=== PATIENT | female | born 1945 | race Caucasian/White ===

== ENCOUNTER 2016-02-28 12:58 | Emergency (ER) | payer OTHER, MEDICARE ==
[~2016-02-28] VITALS: Ht 170.2 cm; Wt 97.5 kg
[~2016-02-28 12:58] MED LIST: ALBU1AER9 INH; ASPI81TA28 PO; ATV5 PO; B-COTAB18 PO; BIOF500T PO; CHOL100027 PO; CLC100X PO; ESTR1CRE VA; FERR1TAB62 PO; FLUT27.5 NAE; GFNSR600 PO; GLUCTAB7 PO; HYDR12.56 PO; LOSA50TA54 PO; MULT-506 PO; NXM/40 PO; POTA10CA28 PO; TOPI50TA16 PO; VENL-271 PO; VITAMIN B PO
[2016-02-28 13:01] VITALS: BP 197/78; PULSE 82; O2SAT 99; Ht 170.2 cm; Wt 97.5 kg
--- NOTE | 2016-02-28 14:10 | DIAGNOSTIC IMAGING REPORT ---
LEFT FIFTH FINGER 3 VIEWS CLINICAL HISTORY: Fall with fifth finger pain and injury. FINDINGS: 3 views of the left fifth finger are obtained. No prior studies are available for comparison at the time of dictation. The skeletal structures are osteopenic. No fracture is identified. There is osteoarthritic change identified involving the interphalangeal joints. 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 The fifth metacarpophalangeal joint appears preserved. Soft tissue edema is noted in the fifth digit. IMPRESSION: 1. Soft tissue edema with no acute fracture identified in the left fifth finger. 2. Arthritic change as above. Electronically signed by: Jaime Jiménez M.D. 02/28/2016 2:08 PM
--- NOTE | 2016-02-28 14:12 | DIAGNOSTIC IMAGING REPORT ---
RIGHT KNEE 3 VIEWS CLINICAL HISTORY: Fall with right knee pain. FINDINGS: AP, crosstable lateral, and sunrise views of the right knee are obtained. No prior studies are available for comparison at the time of dictation. The skeletal structures are osteopenic. No fracture is seen. There is moderate degenerative narrowing at the patellofemoral articulation. Only mild narrowing is seen in the medial and lateral compartments. A calcified fabella is incidentally noted. There is a large superior patellar enthesophyte. Tiny marginal osteophytes are noted. A small joint effusion is suspected. Mild soft tissue edema is seen around the knee. IMPRESSION: 1. Mild soft tissue edema and small joint effusion. No fracture is identified. 2. Osteopenia and mild arthritic change as above. Electronically signed by: Jaime Jiménez M.D. 02/28/2016 2:10 PM
--- NOTE | 2016-02-28 14:27 | EMERGENCY ROOM VISIT NOTE ---
ED Visit Note First contact with patient: 13:07 CHIEF COMPLAINT: Left fifth finger and right knee injury yesterday HISTORY OF PRESENT ILLNESS: Patient is a 70-year-old white female who presents emergency department for evaluation of pain, swelling and bruising in the left fifth finger and the right knee. She tripped on an uneven curb while walking last evening, landing on the flexed right knee, and apparently tried to catch herself on her left hand. She noted pain, swelling and a slight abrasion over the anterior knee, as well as bruising and discomfort in the left fifth finger. She applied ice and took Tylenol before she went to bed last day. She is able to walk and bear weight on the knee but it is painful and swollen. There was no audible snap or crack at the time of the fall. REVIEW OF SYSTEMS: Review of systems as per HPI. All other systems reviewed were negative. At least 6 systems reviewed. PMH: Electronic medical records are reviewed and summarized as above/below. See Problem List. SOCIAL HISTORY: Patient lives at home with her . Nonsmoker.. PHYSICAL EXAM: Vital Signs: Reviewed Nurse's notes. CONSTITUTIONAL: Patient is a pleasant, well-appearing 70-year-old white female who is awake and alert and in no acute distress. She stated at the bedside. MUSCULOSKELETAL: There is no deformity of the left fifth finger, which is circumferentially swollen, and ecchymotic, particularly involving the proximal and middle phalanx. Range of motion is full, limited only by the soft tissue swelling. She does not have pain extending into the MCP joint. Examination of the right knee shows a superficial abrasion anteriorly. The knee is slightly swollen and ecchymotic, particularly in the prepatellar area. No significant knee joint effusion is palpable. She is tender over the patella, no obvious defect or fracture crepitus is noted. No pain over the medial or the lateral joint line, range of motion is full. No gross ligament instability is appreciated. She is neurovascularly intact. EMERGENCY DEPARTMENT COURSE: X-rays of the right knee and left fifth finger were obtained and noted arthritic changes without evidence for acute fracture or dislocation. She was placed in a metal finger splint. Supportive care measures were discussed. Differential diagnosis included fracture, dislocation , sprain, contusion, among others. Problem List Medical Problems: (1) Hypertension Nos Status: Chronic Surgical Problems: (1) Appendicitis Status: Resolved (2) Bilateral tubal ligation Status: Resolved Current/Historical Medications Scheduled Aspirin (Aspirin Ec), 81 MG PO DAILY B-Complex Vitamins (Vitamin B Complex), 1 TAB PO DAILY Bioflavonoid Products (Suly-C), 1 TAB PO DAILY Cholecalciferol (Vitamin D 1000 Unit), 1,000 INTER.UNIT PO DAILY Esomeprazole Magnesium (Nexium), 40 MG PO QAM Estrogens, Conjugated Vaginal (Premarin), 0.25 APPL VA 3XWK Bkrfskronro-Pohtiysxqyh-Rgi C- (Glucosamine Chondroitin), 1 TAB PO DAILY Hydrochlorothiazide (Hctz), 12.5 MG PO DAILY Lorazepam (Ativan *), 0.5 MG PO DAILY PRN Losartan Potassium (Cozaar), 50 MG PO DAILY Multivitamin (Multivitamin), 1 TAB PO DAILY Topiramate (Topamax), 50 MG PO BID Venlafaxine Hcl (Venlafaxine Hcl Er), 37.5 MG PO DAILY [Vitamin B1,B6,B12], 1 DOSE PO DAILY Scheduled PRN Albuterol (Proair Hfa), 2 PUFFS INH Q4H PRN for SOB/Wheezing Fluticasone Furoate (Veramyst), 2 SPRAYS MANJIT BID PRN Guaifenesin Ext Rel (Mucinex Ext Rel *), 1,200 MG PO BID PRN Allergies Coded Allergies: Ibuprofen (Verified Allergy, Unknown, HIVES AND SWELLING, 02/28/16) Vital Signs Date Time Temp Pulse Resp B/P Pulse Ox O2 Delivery O2 Flow Rate FiO2 02/28/16 13:01 82 16 197/78 99 Departure Information Impression Primary Impression: Knee contusion Additional Impression: Finger sprain Referrals Johnnie Gates D.O. (PCP) Patient Instructions A Signature Page, My [facility] Additional Instructions Acetaminophen(Tylenol) may be used for fever or pain. Use 1000mg every six hours as needed. Avoid using more than 3000mg in a 24 hour period. This medication can be taken if you need to drive, work, or perform activities which may be dangerous when taking narcotic pain medication. Ice compresses for 20 minutes at a time four times daily for 2-3 days. Rest and elevate your injury. Continue current medications. Return to the ER immediately for any numbness, tingling, severe pain, extreme swelling in the extremity or as needed. Follow-up with orthopedic surgery or family doctor if her symptoms are not improving in the next 5-7 days.
== END 2016-02-28 14:46 | disposition home or self-care (01) ==
LOC: C.EDB 12:59 → C.EDD 14:46
DX: S80.01XA Contusion of right knee, initial encounter (principal); S63.617A Unspecified sprain of left little finger, initial encounter; W10.1XXA Fall (on)(from) sidewalk curb, initial encounter; Y93.01 Activity, walking, marching and hiking; I10 Essential (primary) hypertension; Z79.82 Long term (current) use of aspirin; Z79.890 Hormone replacement therapy; Z79.899 Other long term (current) drug therapy; Z88.6 Allergy status to analgesic agent

== ENCOUNTER → 2016-07-21 | Outpatient (CLI) | payer OTHER, MEDICARE ==
[~2016-07-21] MED LIST changes: -CLC100X PO; -FERR1TAB62 PO; -POTA10CA28 PO
--- NOTE | 2016-07-21 08:44 | DIAGNOSTIC IMAGING REPORT ---
GI SERIES W/O KUB CLINICAL HISTORY: Follow-up hernia. COMPARISON STUDY: Upper GI series 11/04/2014. FLUOROSCOPY TIME: 2.4 minutes. FINDINGS: 21 images submitted. The patient swallowed barium without difficulty. The esophagus is normal in course and caliber. There is a small hiatal hernia, unchanged. Irregular appearance of the gastric fundus within the hernia likely corresponds the patient's reported history of a fundoplication. This is also unchanged. No gastric ulcerations. The duodenal bulb and duodenal C sweep are within normal limits. Cervical spinal fusion hardware. Cholecystectomy. No gastroesophageal reflux. IMPRESSION: No change from the prior study. Small hiatus hernia persists. Electronically signed by: Curtis Shabazz M.D. 07/21/2016 8:42 AM Dictated Date/Time: 07/21/2016 8:40 AM
== END | disposition home or self-care (01) ==
LOC: C.RAD 07:57
PROVIDERS: ATTEND Surgery
DX: Z98.890 Other specified postprocedural states (principal); Z87.19 Personal history of other diseases of the digestive system

== ENCOUNTER → 2016-09-14 | Outpatient (CLI) | payer OTHER, MEDICARE ==
[~2016-09-14] MED LIST changes: +OPTIRAY 320 IV PRN
--- NOTE | 2016-09-14 12:03 | DIAGNOSTIC IMAGING REPORT ---
ABD/PELVIS IV AND ORAL CONT HISTORY: 71 years Female with acute diffuse lower abdominal pain with diarrhea. Concern for acute diverticulitis. COMPARISON: CT abdomen and pelvis 07/20/2012 TECHNIQUE: Multiple axial CT images of the abdomen and pelvis were obtained following the intravenous administration of 93 mL Optiray 320. Oral contrast also used. FINDINGS: There are a few scattered groundglass nodules at the lung bases measuring up to 7 mm within the lateral basal segment left lower lobe on image 9 and measuring up to 4 mm within the lateral segment right middle lobe on image 6. These foci were not imaged on comparison study. There is no pneumoperitoneum. Inferior cardiac chambers are unremarkable. Coronary arterial calcifications are seen. Prior cholecystectomy. 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 There is suggested fatty infiltration of the liver. The spleen, pancreas and adrenal glands appear normal. Several nonobstructing renal calculi are seen on the left measuring up to 5 mm. Suggested cyst of the posterior interpolar right kidney measures 8 mm. There is no hydronephrosis. Bilateral ureters appear normal. There is mild circumferential wall thickening of the urinary bladder with minimal surrounding inflammatory stranding. Uterus appears age appropriate. Surgical clips are again seen within the pelvis. Cystic lesion within the region of the right adnexum measures 5.5 x 3.6 cm, previously 3.7 x 3.3 cm with similar appearing lesion seen on the left, 2.7 x 2.2 cm, previously 1.5 x 1.5 cm. There is moderate atherosclerotic plaquing of the abdominal aorta. No bulky retroperitoneal adenopathy. There is a large hiatal hernia with approximately 50% of the stomach located within the thorax. No bowel obstruction. Scattered noninflamed colonic diverticula are noted throughout the sigmoid colon. Prior appendectomy. There are no significant inflammatory changes of the bowel. Soft tissues are unremarkable. The bones are moderately demineralized. There is 8 mm anterolisthesis L5 on S1 secondary to remote appearing bilateral pars defects. IMPRESSION: 1. Circumferential wall thickening of the urinary bladder with mild surrounding inflammatory stranding suggests cystitis. Correlate with urinalysis. 2. Colonic diverticulosis without diverticulitis. 3. Cystic lesions of the bilateral adnexa, right greater than left have mildly increased in size from comparison study 07/20/2012. These findings could be correlated with pelvic ultrasound. 4. Prior cholecystectomy. Moderate amount of intrahepatic pneumobilia is likely secondary to incompetent sphincter of Oddi. 5. Large hiatal hernia with partial intrathoracic stomach. 6. Nonobstructing left renal calculi. The above report was generated using voice recognition software. It may contain grammatical, syntax or spelling errors. Electronically signed by: Desean Hernandez M.D. 09/14/2016 12:02 PM Dictated Date/Time: 09/14/2016 11:48 AM
== END | disposition home or self-care (01) ==
LOC: C.CTS 09:38
PROVIDERS: ATTEND Nurse Practitioner
DX: K57.30 Diverticulosis of large intestine without perforation or abscess without bleeding (principal); R19.7 Diarrhea, unspecified; R10.30 Lower abdominal pain, unspecified; K44.9 Diaphragmatic hernia without obstruction or gangrene

== ENCOUNTER 2017-06-20 14:11 | Emergency (ER) | payer OTHER, MEDICARE ==
[~2017-06-20] VITALS: Ht 170.2 cm; Wt 90.1 kg
[~2017-06-20 14:11] MED LIST changes: -OPTIRAY 320 IV PRN
[2017-06-20 14:16] VITALS: Ht 170.2 cm; Wt 90.1 kg
[2017-06-20 15:00] VITALS: O2SAT 97
[2017-06-20] MEDS ORDERED: FENTANYL CITRATE INJ 50 MCG/1 ML 2 ML VIAL IV ONE (15:00)
[2017-06-20 15:01] LABS: BASO % 0.3 %; BASO ABS # 0.02 K/uL (0-0.2); EOS % 1.5 %; EOS ABS # 0.09 K/uL (0-0.5); HEMATOCRIT 38.8 % (37-47); HEMOGLOBIN 12.9 g/dL (12.0-16.0); IG# 0.01 K/uL (0.00-0.02); LYMPH % 15.4 %; LYMPH ABS # 0.95 K/uL (1.2-3.4); MEAN CELL VOLUME 83.3 fL (80-100); MEAN CORPUSCULAR HEMOGLOBIN 27.7 pg (25-34); MEAN CORPUSCULAR HGB CONC 33.2 g/dl (32-36); MEAN PLATELET VOLUME 10.4 fL (7.4-10.4); MONO % 8.3 %; MONO ABS # 0.51 K/uL (0.11-0.59); NEUT % 74.3 %; NEUT ABS # 4.57 K/uL (1.4-6.5); PLATELET COUNT 307 K/uL (130-400); RED CELL DISTRIBUTION WIDTH CV 16.1 % (11.5-14.5); RED CELL DISTRIBUTION WIDTH SD 48.5 fL (36.4-46.3); WHITE BLOOD COUNT 6.15 K/uL (4.8-10.8)
[2017-06-20 15:10] LABS: PTT PATIENT 26.8 SECONDS (21.0-31.0)
--- NOTE | 2017-06-20 15:17 | DIAGNOSTIC IMAGING REPORT ---
CHEST ONE VIEW PORTABLE CLINICAL HISTORY: Left-sided chest pain. COMPARISON STUDY: Chest radiograph July 20, 2012. FINDINGS: Patient is rotated. Spinal fusion is incidentally noted. There is no pneumothorax or pleural effusion. There is no consolidation to suggest pneumonia. Pulmonary vascularity is normal. Cardiomediastinal silhouette is stable. IMPRESSION: No acute cardiopulmonary findings. Electronically signed by: Ángel Hair M.D. 06/20/2017 3:16 PM Dictated Date/Time: 06/20/2017 3:15 PM
[2017-06-20 15:25] LABS: ALKALINE PHOSPHATASE 81 U/L (45-117); ALT/SGPT 25 U/L (12-78); AST/SGOT 17 U/L (15-37); BLOOD UREA NITROGEN 16 mg/dl (7-18); CALCIUM 9.6 mg/dl (8.5-10.1); CARBON DIOXIDE 26 mmol/L (21-32); CREATININE 1.22 mg/dl (0.60-1.20); GLUCOSE 90 mg/dl (70-99); LIPASE 123 U/L (73-393); POTASSIUM 3.3 mmol/L (3.5-5.1); SODIUM 137 mmol/L (136-145); TOTAL PROTEIN 8.1 gm/dl (6.4-8.2)
--- NOTE | 2017-06-20 15:48 | EMERGENCY ROOM VISIT NOTE ---
History Report prepared by Sanket: Santiago Langford Under the Supervision of: Dr. José Miguel Stewart M.D. First contact with patient: 14:37 Chief Complaint: CHEST PAIN Stated Complaint: PAIN ON LEFT CHEST Nursing Triage Summary: Pain under left breast that started last night. "I sat in a chair for 15 hrs yesterday waiting for my grandson to be born. I'm worried about a blood clot. It's worse if I stretch or move." Denies sob, dizziness or lightheadedness. History of Present Illness The patient is a 72 year old white female with a past medical history of HTN and TIA who presents to the ED with a cc of constant left lower chest pain beginning last night. Pain is worsened with moving her torso and arms. Patient notes that she sat in a chair for 15 hours yesterday waiting for her great grandson to be born. Negative leg swelling, SOB, dizziness, or breast tenderness /swelling/discharge. No recent straining, or injuries. She is on baby aspirin. Patient had recent cataract surgery. No recent hospitalization, fractures, history of cancer, or prolonged travel. No history of shingles. Patient is nervous because she is supposed to fly to [place] next week. Source of History: patient Onset: Last night Position: chest (left lower) Timing: constant Modifying Factors (Worsening): movement (torso and arms) Associated Symptoms: No SOB Note: Negative: leg swelling, dizziness, or breast tenderness/swelling/discharge Review of Systems See HPI for pertinent positives and negatives. A total of ten systems were reviewed and were otherwise negative. Past Medical & Surgical Medical Problems: (1) Hypertension Nos Surgical Problems: (1) Appendicitis (2) Bilateral tubal ligation Family History No pertinent family history stated. Social History Smoking Status: Former Smoker Drug Use: none Marital Status: Housing Status: lives with family Current/Historical Medications Scheduled Aspirin (Aspirin Ec), 81 MG PO DAILY B-Complex Vitamins (Vitamin B Complex), 1 TAB PO DAILY Esomeprazole Magnesium (Nexium), 40 MG PO QAM Estrogens, Conjugated (Premarin), 1 APPLN PV 3XWK Qvlbmebwrdg-Pdvksdknjja-Upj C- (Glucosamine Chondroitin), 1 TAB PO DAILY Hydrochlorothiazide (Hctz), 12.5 MG PO DAILY Losartan Potassium (Cozaar), 50 MG PO DAILY Multivitamin (Multivitamin), 1 TAB PO DAILY Topiramate (Topamax), 50 MG PO BID Venlafaxine Hcl (Venlafaxine Hcl Er), 37.5 MG PO DAILY Scheduled PRN Albuterol Hfa (Ventolin Hfa), 2 PUFFS INH Q4 PRN for SOB/Wheezing Guaifenesin Ext Rel (Mucinex Ext Rel), 1,200 MG PO Q12 PRN for CONGESTION Lorazepam (Ativan), 0.5 MG PO DAILY PRN for Anxiety [Veramyst], 2 SPRAYS MANJIT BID PRN for Nasal Congestion Allergies Coded Allergies: Ibuprofen (Verified Allergy, Intermediate, HIVES AND SWELLING, 09/14/16) Physical Exam Vital Signs Date Time Temp Pulse Resp B/P (MAP) Pulse Ox O2 Delivery O2 Flow Rate FiO2 06/20/17 15:13 63 06/20/17 15:00 97 Room Air 06/20/17 14:16 36.4 70 18 163/79 97 Physical Exam GENERAL: Awake, alert, well-appearing, NAD HENT: Normocephalic, atraumatic. EYES: Normal conjunctiva. Sclera non-icteric. PERRL. No anisocoria. NECK: Supple. No nuchal rigidity. FROM. RESPIRATORY: CTAB, no rhonchi, wheezing, crackles CARDIAC: RRR, no MRG ABDOMEN: Soft, NTND, BS+ MSK: No LE edema. Reproducible left lower chest wall pain. No overlying skin changes. No vesicles. Pain with LUE movement. NEURO: GCS 15, CN 2-12 intact, moves all 4s on command SKIN: No rash or jaundice noted. Medical Decision & Procedures ER Provider Diagnostic Interpretation: Radiology results as stated below per my review and radiologist interpretation: CHEST ONE VIEW PORTABLE FINDINGS: Patient is rotated. Spinal fusion is incidentally noted. There is no pneumothorax or pleural effusion. There is no consolidation to suggest pneumonia. Pulmonary vascularity is normal. Cardiomediastinal silhouette is stable. IMPRESSION: No acute cardiopulmonary findings. Electronically signed by: Ángel Hair M.D. 06/20/2017 3:16 PM Laboratory Results 06/20/17 14:50 Red Blood Count 4.66, Mean Corpuscular Volume 83.3, Mean Corpuscular Hemoglobin 27.7, Mean Corpuscular Hemoglobin Concent 33.2, Mean Platelet Volume 10.4, Neutrophils (%) (Auto) 74.3, Lymphocytes (%) (Auto) 15.4, Monocytes (%) (Auto) 8.3, Eosinophils (%) (Auto) 1.5, Basophils (%) (Auto) 0.3, Neutrophils # (Auto) 4.57, Lymphocytes # (Auto) 0.95, Monocytes # (Auto) 0.51, Eosinophils # (Auto) 0.09, Basophils # (Auto) 0.02 06/20/17 14:50 Test 06/20/17 14:50 White Blood Count 6.15 K/uL (4.8-10.8) Red Blood Count 4.66 M/uL (4.2-5.4) Hemoglobin 12.9 g/dL (12.0-16.0) Hematocrit 38.8 % (37-47) Mean Corpuscular Volume 83.3 fL (80-100) Mean Corpuscular Hemoglobin 27.7 pg (25-34) Mean Corpuscular Hemoglobin Concent 33.2 g/dl (32-36) Platelet Count 307 K/uL (130-400) Mean Platelet Volume 10.4 fL (7.4-10.4) Neutrophils (%) (Auto) 74.3 % Lymphocytes (%) (Auto) 15.4 % Monocytes (%) (Auto) 8.3 % Eosinophils (%) (Auto) 1.5 % Basophils (%) (Auto) 0.3 % Neutrophils # (Auto) 4.57 K/uL (1.4-6.5) Lymphocytes # (Auto) 0.95 K/uL (1.2-3.4) Monocytes # (Auto) 0.51 K/uL (0.11-0.59) Eosinophils # (Auto) 0.09 K/uL (0-0.5) Basophils # (Auto) 0.02 K/uL (0-0.2) RDW Standard Deviation 48.5 fL (36.4-46.3) RDW Coefficient of Variation 16.1 % (11.5-14.5) Immature Granulocyte % (Auto) 0.2 % Immature Granulocyte # (Auto) 0.01 K/uL (0.00-0.02) Prothrombin Time 11.0 SECONDS (9.0-12.0) Prothromb Time International Ratio 1.0 (0.9-1.1) Activated Partial Thromboplast Time 26.8 SECONDS (21.0-31.0) Partial Thromboplastin Ratio 1.0 Anion Gap 6.0 mmol/L (3-11) Est Creatinine Clear Calc Drug Dose 49.5 ml/min Estimated GFR () 52.0 Estimated GFR (Non- 44.8 BUN/Creatinine Ratio 13.0 (10-20) Calcium Level 9.6 mg/dl (8.5-10.1) Total Bilirubin 0.4 mg/dl (0.2-1) Direct Bilirubin 0.1 mg/dl (0-0.2) Aspartate Amino Transf (AST/SGOT) 17 U/L (15-37) Alanine Aminotransferase (ALT/SGPT) 25 U/L (12-78) Alkaline Phosphatase 81 U/L (45-117) Troponin I < 0.015 ng/ml (0-0.045) Pro-B-Type Natriuretic Peptide 164 pg/ml (0-900) Total Protein 8.1 gm/dl (6.4-8.2) Albumin 4.0 gm/dl (3.4-5.0) Lipase 123 U/L (73-393) Laboratory results reviewed by me Medications Administered Medications (Trade) Dose Ordered Sig/Krishan Route Start Time Stop Time Status Last Admin Dose Admin Fentanyl Citrate (Fentanyl Inj) 50 mcg NOW ONCE IV 06/20/17 15:00 06/20/17 15:01 DC 06/20/17 15:27 50 MCG ECG Per My Interpretation Indication: chest pain Rate (beats per minute): 64 Rhythm: normal sinus Findings: other (Normal intervals. Normal axis. No STS changes or TWI. No evidence of right heart strain. ) ED Course 1443: The patient was evaluated in room B3B. A complete history and physical exam was performed. 1532: I reevaluated the patient. Discussed results and discharge instructions: she verbalized understanding and agreement. The patient is ready for discharge. Medical Decision Nursing notes reviewed. Ancillary studies and prior records reviewed. The patient is a 72 year old white female with a past medical history of HTN and TIA who presents to the ED with a cc of constant left lower chest pain beginning last night. Differential diagnosis: Etiologies such as cardiac ischemia, aortic dissection, pulmonary embolism, pneumonia, pneumothorax, musculoskeletal, infections, pericarditis, myocarditis , esophageal rupture, gastrointestinal, as well as others were entertained. Patient was seen and evaluated the bedside. Patient was complaining of some left-sided lower costal margin pain. Patient denies any recent strains sprains , heavy lifting, or trauma. Patient denies any prior history of heart disease. Patient denies any lung disease. Patient notes some reproducible discomfort as well as some pain with raising her left upper extremity. Patient denies any exertional symptoms, recent car or plane travel that has been prolonged, hospitalizations, thrombophilias, history of DVT or PE. Patient did have blood work completed, EKG, troponin, BNP, chest x-ray. Patient is EKG is nonischemic with a undetectable troponin. HEART score < 3. Less likely ACS. No evidence of right heart strain on EKG. Patient would PERC in, with the patient's well score is 0. Less likely PE. I believe is most likely a musculoskeletal related discomfort or even some spasm. Patient was given some recommendations for voum-iaq-mfingna type treatments as well as home remedies. Patient was told to continue take Tylenol was given a small prescription of tramadol. Patient was told it for her upcoming trip she should do calf exercises, walk around the cabin, and consider compression stockings. Patient was deemed suitable for outpatient follow-up treatment at this time. Patient was given strict follow-up, discharge, and return precautions. All questions were answered. Patient was deemed suitable for outpatient follow-up at this time. Patient agreed with the plan of care and was safely discharged home. Medication Reconcilliation Current Medication List: was personally reviewed by me Blood Pressure Screening Patient's blood pressure: Elevated blood pressure Blood pressure disposition: Referred to PCP Impression Primary Impression: Chest wall pain Additional Impression: Hypokalemia Scribe Attestation The scribe's documentation has been prepared under my direction and personally reviewed by me in its entirety. I confirm that the note above accurately reflects all work, treatment, procedures, and medical decision making performed by me. Departure Information Dispostion Home / Self-Care Prescriptions Tramadol Hcl (ULTRAM) 50 Mg Tab 25 MG PO Q8H for Pain, #12 TAB PRN PAIN Prov: José Miguel Stewart M.D. 06/20/17 Referrals Johnnie Gates D.O. (PCP) Patient Instructions ED Chest Pain Costochondritis, ED TAMMY, My [facility] Additional Instructions Please return to the emergency department if you have worsening or recurrent symptoms not amenable to at-home treatment. Please call for a follow-up appointment with her primary care physician. Please take your medications as prescribed. If you have other concerns and/or complaints please feel free to also call your primary care physician's office or return the ED for further evaluation, management, and treatment. You may take tylenol 650 mg every 6 hours as needed for pain/fever unless told by your physician to not take it or have liver problems. If you still have discomfort you may try using the tramadol. Please be mindful that the medication can make you sleepy or sedated. Take your medications as prescribed. You have been examined and treated today on an emergency basis only. This is not a substitute for, or an effort to provide, complete comprehensive medical care. It is impossible to recognize and treat all injuries or illnesses in a single emergency department visit. It is therefore important that you follow up closely with [facility], your PCP, and/or your specialist(s). Call as soon as possible for an appointment. Thank you for your time and consideration. I look forward to speaking with you again soon. Please don't hesitate to call us if you have any questions. Problem Qualifiers
[2017-06-20] MEDS ORDERED: VNTHFA/IN INH (15:51)
[2017-06-20] MEDS ORDERED: LORA-741 PO (15:51)
[2017-06-20] MEDS ORDERED: GUAI1TAB55 PO (15:51)
[2017-06-20] MEDS ORDERED: PRMVC PV (15:56)
[2017-06-20] MEDS ORDERED: VERAMYST NAE (15:56)
[2017-06-20] MEDS ORDERED: TRAM-453 PO (16:03)
[2017-06-20 16:27] VITALS: BP 137/83; PULSE 65; TEMP 36.4; O2SAT 94
== END 2017-06-20 16:29 | disposition home or self-care (01) ==
LOC: C.EDB 14:12
DX: R07.89 Other chest pain (principal); E87.6 Hypokalemia; I10 Essential (primary) hypertension; Z86.73 Personal history of transient ischemic attack (TIA), and cerebral infarction without residual deficits; Z79.82 Long term (current) use of aspirin; Z87.891 Personal history of nicotine dependence; Z79.899 Other long term (current) drug therapy; Z88.6 Allergy status to analgesic agent

== ENCOUNTER → 2017-07-05 | Outpatient (CLI) | payer OTHER, MEDICARE ==
[~2017-07-05] MED LIST changes: -ALBU1AER9 INH; -ATV5 PO; -BIOF500T PO; -CHOL100027 PO; -ESTR1CRE VA; -FLUT27.5 NAE; -GFNSR600 PO; +GUAI1TAB55 PO; +LORA-741 PO; +OPTIRAY 320 IV PRN; +PRMVC PV; +VERAMYST NAE; -VITAMIN B PO; +VNTHFA/IN INH
--- NOTE | 2017-07-05 16:24 | DIAGNOSTIC IMAGING REPORT ---
(CHEST FOR PE) ANGIO WITH CLINICAL HISTORY: 72 years-old Female presenting with ^LEFT SIDED CHEST PAIN ^LT SIDED CHEST PAIN. TECHNIQUE: Multidetector CT angiography of the chest was performed after administration of intravenous contrast. 3-D volumetric and/or maximum intensity projection (MIP) images were subsequently reconstructed for review. IV contrast: 95 mL of Optiray 320. A dose lowering technique was used consistent with the principles of ALARA (as low as reasonably achievable). COMPARISON: Chest x-ray from 06/20/2017. CT DOSE (mGy.cm): The estimated cumulative dose is 296.19 mGy.cm. FINDINGS: Tube Wrapper topogram: Cholecystectomy clips noted. Pulmonary vasculature: The study is adequate for assessment of the pulmonary vascular tree. No filling defect within the pulmonary arteries to suggest embolus. Main pulmonary artery is not enlarged. No flattening of the interventricular septum. No intracardiac filling defect. No reflux of contrast into the hepatic veins. Remaining chest: On soft tissue windows, normal thyroid and thoracic inlet. No axillary, supraclavicular, hilar, or mediastinal lymphadenopathy. Atherosclerosis of the aorta. Normal heart size. Coronary artery calcification. No pericardial or pleural effusion. Small hiatal hernia. Pneumobilia. Left nephrolithiasis. On lung windows, minimal dependent changes likely atelectasis. Added density at the lung bases. Mosaic attenuation suggest small airways disease. Minimal paraseptal emphysema at the apices. No other focal nodule or infiltrate. Mild bronchial wall thickening. On bone windows, degenerative changes of the spine. Partially visualized anterior cervical fusion hardware. IMPRESSION: 1. No evidence of pulmonary embolus. 2. Findings suggest small airways disease with bronchitis/bronchiolitis. No focal infiltrate to suggest pneumonia. 3. Small hiatal hernia. 4. Left nephrolithiasis. 5. Pneumobilia. Correlate with surgical history. Electronically signed by: Abebe Tang M.D. 07/05/2017 4:23 PM Dictated Date/Time: 07/05/2017 4:15 PM
== END | disposition home or self-care (01) ==
LOC: C.CTS 15:36
PROVIDERS: ATTEND Nurse Practitioner
DX: R07.9 Chest pain, unspecified (principal); K44.9 Diaphragmatic hernia without obstruction or gangrene; N20.0 Calculus of kidney; K83.8 Other specified diseases of biliary tract

== ENCOUNTER 2020-09-28 12:57 | Inpatient (IN) ==
[2020-09-28 14:28] LABS: Basophils # (auto) 0.01 K/uL (0-0.2); Basophils % (auto) 0.1 %; Eosinophils # (auto) 0.02 K/uL (0-0.5); Eosinophils % (auto) 0.2 %; Hematocrit (blood only) 36.3 % (37-47); Hemoglobin 12.3 g/dL (12.0-16.0); Immature Granulocytes # (auto) 0.08 K/uL (0.00-0.02); Immature Granulocytes % (auto) 0.8 %; Lymphocytes # (auto) 0.18 K/uL (1.2-3.4); Lymphocytes % (auto) 1.7 %; Mean Corpuscular Hemoglobin 30.4 pg (25-34); Mean Corpuscular Hgb Conc 33.9 g/dL (32-36); Mean Corpuscular Volume 89.6 fL (80-100); Mean Platelet Volume 11.5 fL (7.4-10.4); Monocytes # (auto) 0.55 K/uL (0.11-0.59); Monocytes % (auto) 5.2 %; Neutrophils # (auto) 9.67 K/uL (1.4-6.5); Platelet Count 279 K/uL (130-400); RDW Coefficient of Variation 14.2 % (11.5-14.5); RDW Standard Deviation 46.6 fL (36.4-46.3); Red Blood Count 4.05 M/uL (4.2-5.4); White Blood Count 10.51 K/uL (4.8-10.8)
[2020-09-28 14:57] LABS: Alanine Aminotransferase 312 U/L (12-78); Albumin Globulin Ratio 0.7 (0.9-2); Albumin Level 3.1 gm/dl (3.4-5.0); Alkaline Phosphatase 306 U/L (45-117); Aspartate Aminotransferase 149 U/L (15-37); BUN Creatinine Ratio 22.9 (10-20); Bilirubin,Total 3.6 mg/dl (0.2-1); Blood Urea Nitrogen 39 mg/dl (7-18); Carbon Dioxide 25 mmol/L (21-32); Chloride 100 mmol/L (98-107); Est GFR (African American) 33.6 ml/min; Globulin 4.7 gm/dl (2.5-4.0); Glucose 294 mg/dl (70-99); Lipase 1147 U/L (73-393); Potassium 2.9 mmol/L (3.5-5.1); Sodium 135 mmol/L (136-145); Total Protein 7.8 gm/dl (6.4-8.2)
[2020-09-28] MEDS ORDERED: ONDANSETRON INJ 2 MG/ML 2 ML VIAL IV STA (16:01)
[2020-09-28] MEDS ORDERED: SODIUM CHLORIDE 0.9% 1000ML 2,000 ML IV ONE (16:01)
--- NOTE | 2020-09-28 16:04 | Emergency Department Note ---
Impression & Plan Choledocholithiasis, Acute pancreatitis ED Provider Note NAME: CHRIS WORLEY AGE: 75 SEX: F : 1945 ARRIVES VIA: Walk-In INFORMANT: Patient ED PROVIDER(S): Dallas Sánchez DO CHIEF COMPLAINT: abdominal pain HPI: Patient is a 75-year-old female who presents the ER for abdominal pain which has been present for the past 2 days associated with nausea and vomiting. She denies any diarrhea. She does have a headache. Pain is a 5 out of 10 located in the epigastric region. History of cholecystectomy about 5 years ago. Denies any dysuria urgency or frequency. Pain is constant. No other exacerbating or remitting factors. She has not vomited in about 8 hours. ROS: See above HPI for pertinent positives & negatives. A total of 10 systems reviewed and were otherwise negative. PAST MEDICAL HISTORY:See Below PAST SURGICAL HISTORY:See Below FAMILY HISTORY:See Below SOCIAL HISTORY:See Below HOME MEDICATIONS:See Below ALLERGIES:See Below VITALS:See Below PHYSICAL EXAMINATION: GENERAL: Sitting up in bed, alert, well appearing, well nourished, no distress, non-toxic EYE EXAM: normal conjunctiva. OROPHARYNX: no exudate, no erythema, lips, buccal mucosa, and tongue normal and mucous membranes are moist NECK: supple, no nuchal rigidity, no adenopathy, non-tender LUNGS: Clear to auscultation. Normal chest wall mechanics HEART: no murmurs, S1 normal and S2 normal ABDOMEN: abdomen soft, non-tender, normo-active bowel sounds, no masses, no rebound or guarding. UPPER EXTREMITIES: upper extremities are grossly normal. LOWER EXTREMITIES: No pitting edema. NEURO EXAM: Normal sensorium, cranial nerves II-XII grossly intact, normal speech, no gross weakness of arms, no gross weakness of legs. MEDICAL DECISION MAKING: Patient is a 75-year-old female who presents ER for abdominal pain nausea vomiting which is been present for the past 2 days history of cholecystectomy. IV was established blood work was obtained. Labs show no significant leukocytosis or anemia. BMP with mild hypokalemia at 2.9. Creatinine at 1.7. There is a transaminitis and elevated bili at 3.6. Lipase was elevated at 1200. CT abdomen pelvis shows choledocholithiasis and I favor that this is also gallstone pancreatitis. Discussed with Dr. Lara from GI and they will evaluate in the morning. Patient was given IV Zosyn and fluids. Discussed with the hospitalist Dr. Fowler and Dr. Stone patient was admitted for further work- up. Triage Nursing notes reviewed. Limited review of prior medical records performed Vital Signs: reviewed and remarkable for no significant abnormalities Differential diagnosis: Differential diagnoses includes but is not limited to gastritis, peptic ulcer disease, GERD, gallbladder disease, pancreatitis, small bowel obstruction, acute coronary syndrome, pericarditis, ischemic bowel, irritable bowel disease, irritable bowel syndrome, appendicitis, diverticulitis, malignancy, hernia, urinary tract infection, torsion, perforation, trauma, infectious. ER treatment provided: See below Diagnostics interpreted by me: Cardiac Monitoring: An order was placed for continuous cardiac monitoring. The monitor shows a rate of 82 with sinus rhythm. Laboratory studies: As stated above and show below. Imaging studies: CT abdomen pelvis as discussed above Consultation(s): Consults as discussed above Procedures: none Critical Care: None Past Med/Surg History Medical History Abdominal pain Hypertension Kidney stones Ovarian cyst Surgical History H/O cataract removal with insertion of prosthetic lens History of appendectomy History of esophagogastroduodenoscopy (EGD) S/P carpal tunnel release S/P cataract surgery S/P cholecystectomy S/P colonoscopy S/P eye surgery surgery of inner eye strands S/P foot surgery S/P hernia repair Paraesophageal wwith lap w/ mesh S/P laser trabeculoplasty of eye S/P spinal surgery cerv, Below C2 Family History Mother Lung cancer Hypertension Cancer Daughter Colorectal cancer Father Diabetes Heart disease Myocardial infarction Grandmother (Maternal) Lung cancer Hypertension Glaucoma Denies family history of Ovarian cancer Prostate cancer Breast cancer Social History Smoking Status: Former smoker Tobacco Type: Cigarettes Number of Years Since Quit: 35; Second Hand Exposure: Yes; Hx Alcohol Use: No Hx Substance Use: No Preferred Language: Macedonian Communication Ability: Effective Visual Impairment: No Limitations Hearing Ability: Normal [employer] Labou[employer] Required: No Beliefs That Will Affect Care: None marital status: Current Living Situation: Spouse current occupational status: retired Other Information That Helps Us Care for You: No Feels Safe at Home: Yes Safety Concerns: Feels Safe At This Time Childhood Exposure to Second-Hand Smoke: Yes Dental Care, Regularly: Yes Physical Activity Frequency: Does not Exercise Physical Activity Frequency Comment: Yoga Seatbelt Use: always Sunscreen Use: Yes Assistive Devices: None Allergies Allergies Allergy/AdvReac Type Severity Reaction Status Date / Time ibuprofen Allergy Intermediate HIVES AND Verified 09/28/20 17:11 SWELLING pramipexole [From Mirapex] AdvReac Hyperactivi Verified 09/28/20 17:11 ty Home Meds Home Medications Medication Instructions Recorded Confirmed acetaminophen 500 mg tablet 500 mg PO Q6H PRN 06/26/18 09/28/20 (Tylenol Extra Strength) albuterol sulfate 90 mcg/actuation 2 puff INHALATION Q4H PRN 06/26/18 09/28/20 aerosol inhaler (Ventolin HFA) aspirin 81 mg tablet,delayed 81 mg PO QAM 06/26/18 09/28/20 release multivitamin 1 tab PO QAM 06/26/18 09/28/20 prochlorperazine maleate 10 mg 10 mg PO TID PRN 10/30/19 09/28/20 tablet (Compazine) octreotide acetate 50 mcg/mL 50 mcg SUBCUT MONTHLY ml 12/17/19 09/28/20 injection solution Previous Rx's Medication Instructions Recorded venlafaxine 37.5 mg 37.5 mg PO QAM #90 cap 04/02/20 capsule,extended release 24 hr ropinirole 0.5 mg tablet 0.5 mg PO .COMPLEX 30 Days #45 tab 05/28/20 diazepam 5 mg tablet (Valium) 2.5 mg PO HS PRN #30 tab 06/23/20 blood sugar diagnostic (OneTouch #50 ea 06/25/20 Verio test strips) lancets 30 gauge (OneTouch Delica #100 ea 06/25/20 Lancets) gabapentin 300 mg capsule 600 mg PO TID 90 Days #540 cap 08/12/20 hydrochlorothiazide 25 mg tablet 25 mg PO DAILY #90 tab 08/17/20 erenumab-aooe 140 mg/mL 140 mg SUBCUT .COMPLEX 30 Days #1 08/20/20 subcutaneous auto-injector ml (Aimovig Autoinjector) glipizide 10 mg tablet 10 mg PO BID #60 tab 08/20/20 ondansetron 4 mg disintegrating 4 mg PO Q8H PRN #30 tab 08/24/20 tablet topiramate 50 mg tablet (Topamax) 50 mg PO BID 90 Days #180 tab 09/04/20 losartan 50 mg tablet 50 mg PO DAILY #90 tab 09/16/20 Results & Data (ED) Vital Signs Vital Signs - 24 hr 09/28/20 13:01 09/28/20 16:18 09/28/20 17:00 Temperature 36.2 C L Temperature Source Temporal Artery Scan Pulse Rate 96 H 80 86 Pulse Rate from SpO2 Sensor 80 85 Pulse Rhythm Regular Pulse Strength Normal Respiratory Rate 16 18 19 Respiratory Effort / Characteristics Non-Labored Respiratory Depth Normal Respiratory Pattern Regular Blood Pressure 138/67 175/84 H 158/79 H Blood Pressure Mean 90 114 105 Blood Pressure Position Sitting Pulse Oximetry 97 96 96 Oxygen Delivery Method Room Air Sepsis Recent Fever Within 48 Hours No Sepsis New/Unexplained Change in Mental Status N/A Sepsis Action Taken by Nursing No Action Required 09/28/20 17:30 09/28/20 18:00 09/28/20 18:30 Temperature Temperature Source Pulse Rate 83 83 Pulse Rate from SpO2 Sensor 85 83 83 Pulse Rhythm Pulse Strength Respiratory Rate 16 16 15 Respiratory Effort / Characteristics Respiratory Depth Respiratory Pattern Blood Pressure 123/69 145/63 H 141/62 H Blood Pressure Mean 87 90 88 Blood Pressure Position Pulse Oximetry 96 97 94 Oxygen Delivery Method Sepsis Recent Fever Within 48 Hours Sepsis New/Unexplained Change in Mental Status Sepsis Action Taken by Nursing 09/28/20 19:00 09/28/20 19:30 09/28/20 20:00 Temperature Temperature Source Pulse Rate 86 86 85 Pulse Rate from SpO2 Sensor 86 87 85 Pulse Rhythm Pulse Strength Respiratory Rate 23 19 23 Respiratory Effort / Characteristics Respiratory Depth Respiratory Pattern Blood Pressure 158/66 H 137/63 154/64 H Blood Pressure Mean 96 87 94 Blood Pressure Position Pulse Oximetry 94 95 96 Oxygen Delivery Method Sepsis Recent Fever Within 48 Hours Sepsis New/Unexplained Change in Mental Status Sepsis Action Taken by Nursing Laboratory Data Result diagrams: 09/28/20 14:15 09/28/20 14:15 Lab Results 09/28/20 09/28/20 09/28/20 Range/Units 14:15 14:15 17:04 WBC 10.51 (4.8-10.8) K/uL RBC 4.05 L (4.2-5.4) M/uL Hgb 12.3 (12.0-16.0) g/dL Hct 36.3 L (37-47) % MCV 89.6 (80-100) fL MCH 30.4 (25-34) pg MCHC 33.9 (32-36) g/dL RDW Std Deviation 46.6 H (36.4-46.3) fL RDW Coeff of Geraldo 14.2 (11.5-14.5) % Plt Count 279 (130-400) K/uL MPV 11.5 H (7.4-10.4) fL Immature Gran % (Auto) 0.8 % Neut % (Auto) 92.0 % Lymph % (Auto) 1.7 % Hendricks % (Auto) 5.2 % Eos % (Auto) 0.2 % Baso % (Auto) 0.1 % Neut # (Auto) 9.67 H (1.4-6.5) K/uL Lymph # (Auto) 0.18 L (1.2-3.4) K/uL Hendricks # (Auto) 0.55 (0.11-0.59) K/uL Eos # (Auto) 0.02 (0-0.5) K/uL Baso # (Auto) 0.01 (0-0.2) K/uL Immature Gran # (Auto) 0.08 H (0.00-0.02) K/uL Sodium 135 L (136-145) mmol/L Potassium 2.9 L (3.5-5.1) mmol/L Chloride 100 (98-107) mmol/L Carbon Dioxide 25 (21-32) mmol/L Anion Gap 10.0 (3-11) BUN 39 H (7-18) mg/dl Creatinine 1.72 H (0.6-1.2) mg/dl Est Cr Clr Drug Dosing Not Reportable Est GFR ( Amer) 33.6 ml/min Est GFR (Non-Af Amer) 29.0 ml/min BUN/Creatinine Ratio 22.9 H (10-20) Glucose 294 H (70-99) mg/dl Calcium 9.0 (8.5-10.1) mg/dl Total Bilirubin 3.6 H (0.2-1) mg/dl AST 149 H (15-37) U/L ALT 312 H (12-78) U/L Alkaline Phosphatase 306 H (45-117) U/L Total Protein 7.8 (6.4-8.2) gm/dl Albumin 3.1 L (3.4-5.0) gm/dl Globulin 4.7 H (2.5-4.0) gm/dl Albumin/Globulin Ratio 0.7 L (0.9-2) Lipase 1147 H (73-393) U/L Specimen Hemolysis COVID-19 Eval Order Covid19 at [facility] SARS-CoV-2 (PCR) (Negative) 09/28/20 Range/Units 17:04 WBC (4.8-10.8) K/uL RBC (4.2-5.4) M/uL Hgb (12.0-16.0) g/dL Hct (37-47) % MCV (80-100) fL MCH (25-34) pg MCHC (32-36) g/dL RDW Std Deviation (36.4-46.3) fL RDW Coeff of Geraldo (11.5-14.5) % Plt Count (130-400) K/uL MPV (7.4-10.4) fL Immature Gran % (Auto) % Neut % (Auto) % Lymph % (Auto) % Hendricks % (Auto) % Eos % (Auto) % Baso % (Auto) % Neut # (Auto) (1.4-6.5) K/uL Lymph # (Auto) (1.2-3.4) K/uL Hendricks # (Auto) (0.11-0.59) K/uL Eos # (Auto) (0-0.5) K/uL Baso # (Auto) (0-0.2) K/uL Immature Gran # (Auto) (0.00-0.02) K/uL Sodium (136-145) mmol/L Potassium (3.5-5.1) mmol/L Chloride (98-107) mmol/L Carbon Dioxide (21-32) mmol/L Anion Gap (3-11) BUN (7-18) mg/dl Creatinine (0.6-1.2) mg/dl Est Cr Clr Drug Dosing Est GFR ( Amer) ml/min Est GFR (Non-Af Amer) ml/min BUN/Creatinine Ratio (10-20) Glucose (70-99) mg/dl Calcium (8.5-10.1) mg/dl Total Bilirubin (0.2-1) mg/dl AST (15-37) U/L ALT (12-78) U/L Alkaline Phosphatase (45-117) U/L Total Protein (6.4-8.2) gm/dl Albumin (3.4-5.0) gm/dl Globulin (2.5-4.0) gm/dl Albumin/Globulin Ratio (0.9-2) Lipase (73-393) U/L Specimen Hemolysis COVID-19 Eval Order SARS-CoV-2 (PCR) NEGATIVE (Negative) Administered Medications Piperacillin Sod/Tazobactam (Sod 3.375 gm/ Dextrose) 115 mls @ 28.75 mls/hr IV Q8H RAJAT; Protocol Stop: 10/08/20 22:59 Last Admin: 09/28/20 22:44 Dose: 28.8 mls/hr Documented by: [id number] Insulin Aspart (Insulin Aspart 100 Units/Ml 3 Ml Pen) 0 units SC ACHS RAJAT Stop: 10/28/20 22:44 Last Admin: 09/28/20 22:46 Dose: 3 units Documented by: [id number] Cosigned by: [id number] Discontinued Medications Diphenhydramine HCl (Diphenhydramine 50 Mg/Ml Vial) Confirm Administered Dose 50 mg .ROUTE .STK-MED ONE Stop: 09/28/20 18:45 Last Admin: 09/28/20 18:50 Dose: 25 mg Documented by: [id number] Sodium Chloride (Nss 1000ml) 2,000 mls @ 999 mls/hr IV .Q2H1M ONE Stop: 09/28/20 18:01 Last Infusion: 09/28/20 19:31 Dose: 0 mls/hr Documented by: [id number] Admin: 09/28/20 16:28 Dose: 999 mls/hr Documented by: [id number] Piperacillin Sod/Tazobactam (Sod 4.5 gm/ Dextrose) 120 mls @ 200 mls/hr IV NOW ONE; Protocol Stop: 09/28/20 18:20 Last Infusion: 09/28/20 19:00 Dose: 0 mls/hr Documented by: [id number] Admin: 09/28/20 18:17 Dose: 200 mls/hr Documented by: [id number] Promethazine HCl (Phenergan) 25 mg in 51 mls @ 204 mls/hr IV NOW STA Stop: 09/28/20 20:26 Last Infusion: 09/28/20 21:00 Dose: 0 mls/hr Documented by: [id number] Admin: 09/28/20 20:35 Dose: 204 mls/hr Documented by: [id number] Morphine Sulfate (Morphine Sulfate 10 Mg/Ml Carp/Vial) 6 mg IV NOW STA Stop: 09/28/20 17:59 Last Admin: 09/28/20 18:17 Dose: 6 mg Documented by: [id number] Ondansetron HCl (Ondansetron Inj 2 Mg/Ml 2 Ml Vial) 4 mg IV NOW STA Stop: 09/28/20 16:02 Last Admin: 09/28/20 16:28 Dose: 4 mg Documented by: [id number] Imaging Data Radiologist's Impression: Abdomen/Pelvis CT 09/28/20 16:17 CT SCAN OF THE ABDOMEN AND PELVIS WITHOUT IV CONTRAST CLINICAL HISTORY: Generalized abdominal pain. Nausea and vomiting. COMPARISON STUDY: Abdominal CT dated 09/14/2016 and 06/26/2018. TECHNIQUE: CT scan of the abdomen and pelvis is performed from the lung bases to the proximal femora. Images are reviewed in the axial, sagittal, and coronal planes. IV contrast was not administered for this examination. A dose lowering technique was utilized adhering to the principles of ALARA. CT DOSE: 523.83 mGy.cm FINDINGS: Lung bases: The heart is mildly enlarged and without pericardial effusion. The coronary arteries are densely calcified. A 3 mm right middle lobe pulmonary nodule image #27 and a 3 mm pleural-based nodule in the left lower lobe on image #37 are unchanged from 2017. The lung bases are otherwise clear noting bibasilar scarring/atelectasis. There is a moderate hiatal hernia. Liver: The unenhanced liver is enlarged, measuring 21.7 cm in length. The liver demonstrates diffusely diminished attenuation consistent with hepatic steatosis. There is mild central intrahepatic biliary ductal dilatation. Gallbladder: Surgically absent noting clips in the gallbladder fossa. There are numerous calcified gallstones within the common bile duct. The largest measures at least 1.3 cm as seen on image #151. Spleen: Normal in size and attenuation. Pancreas: The pancreas appears mildly edematous. There is peripancreatic stranding and trace fluid. Findings are consistent with acute pancreatitis. There is no evidence of organized peripancreatic fluid collection on this unenhanced examination. Adrenal glands: Unremarkable. Kidneys: The unenhanced kidneys are normal in size and without hydronephrosis. There are least 7 nonobstructing left renal calculi which measure up to 11 mm. No right renal calculi are identified and there is no ureteral stone. There is no evidence of contour deforming renal mass lesion. Abdominal vasculature: The abdominal aorta is normal in course and caliber noting advanced atherosclerotic calcification. Bowel: There is no bowel obstruction. There is mild colonic diverticulosis witho ut CT evidence of acute diverticulitis. The appendix is not identified and reported surgically absent. Peritoneum: There is no intraperitoneal free air or abdominal ascites. There is a small fat-containing umbilical hernia. Lymphadenopathy: Calcified mesenteric lymph nodes are noted in the right lower quadrant. No pathologically enlarged lymph nodes are seen in the abdomen or pelvis. There are shotty subcentimeter retroperitoneal lymph nodes. Pelvic viscera: The bladder and uterus are normal as visualized. Cystic ad nexal/ovarian lesions are unchanged from 2017. These measure up to 4.9 cm on the right and 3.9 cm on the left. Surgical clips are noted in the pelvis bilaterally. Skeletal structures: The skeletal structures are osteopenic. There is moderate lumbosacral spondylosis. There are bilateral pars defects at L5 with advanced disc space narrowing, advanced endplate sclerosis, and 10 mm anterolisthesis at L5-S1. No lytic or blastic lesions are seen. There is chronic deformity of the inferior right pubic ring. IMPRESSION: 1. Findings are consistent with acute pancreatitis. Correlate with clinical findings and serum amylase/lipase levels. 2. The gallbladder surgically absent and there is extensive choledocholithiasis with numerous calcified gallstones seen within the common bile duct. MRCP is unlikely to provide further information. GI follow-up is recommended. 3. Left-sided nephrolithiasis. 4. Hiatal hernia. 5. Hepatomegaly and hepatic steatosis. 6. Cystic ovarian lesions are pathologically indeterminant and similar to prior studies. 7. Additional findings as above. ACT 112: Negative or not required by law. Electronically signed by: Jaime Jiménez M.D. 09/28/2020 5:07 PM Discharge Plan Visit Data Chief Complaint: Vomiting Stated Complaint: VOMIT, NAUSEA, ABD PAIN ED Provider: Dallas Sánchez Discharge Problem: Choledocholithiasis, Acute pancreatitis Patient Disposition: Admitted As Inpatient Discharge Instructions Interventions: ED Discharge Assessment Last Done: 09/28/20 21:57 Discharge Problem: Acute pancreatitis Qualifiers: Pancreatitis type: unspecified pancreatitis type Acute pancreatitis complication: unspecified Qualified Code(s): K85.90 - Acute pancreatitis without necrosis or infection, unspecified
--- NOTE | 2020-09-28 17:08 | CT Scan Report ---
CT SCAN OF THE ABDOMEN AND PELVIS WITHOUT IV CONTRAST CLINICAL HISTORY: Generalized abdominal pain. Nausea and vomiting. COMPARISON STUDY: Abdominal CT dated 09/14/2016 and 06/26/2018. TECHNIQUE: CT scan of the abdomen and pelvis is performed from the lung bases to the proximal femora. Images are reviewed in the axial, sagittal, and coronal planes. IV contrast was not administered for this examination. A dose lowering technique was utilized adhering to the principles of ALARA. CT DOSE: 523.83 mGy.cm FINDINGS: Lung bases: The heart is mildly enlarged and without pericardial effusion. The coronary arteries are densely calcified. A 3 mm right middle lobe pulmonary nodule image #27 and a 3 mm pleural-based nodul e in the left lower lobe on image #37 are unchanged from 2017. The lung bases are otherwise clear not ing bibasilar scarring/atelectasis. There is a moderate hiatal hernia. Liver: The unenhanced liver is enlarged, measuring 21.7 cm in length. The liver demonstrates diffusel y diminished attenuation consistent with hepatic steatosis. There is mild central intrahepatic biliar y ductal dilatation. Gallbladder: Surgically absent noting clips in the gallbladder fossa. There are numerous calcified ga llstones within the common bile duct. The largest measures at least 1.3 cm as seen on image #151. Spleen: Normal in size and attenuation. Pancreas: The pancreas appears mildly edematous. There is peripancreatic stranding and trace fluid. F indings are consistent with acute pancreatitis. There is no evidence of organized peripancreatic flui d collection on this unenhanced examination. Adrenal glands: Unremarkable. Kidneys: The unenhanced kidneys are normal in size and without hydronephrosis. There are least 7 nono bstructing left renal calculi which measure up to 11 mm. No right renal calculi are identified and th ere is no ureteral stone. There is no evidence of contour deforming renal mass lesion. Abdominal vasculature: The abdominal aorta is normal in course and caliber noting advanced atheroscle rotic calcification. Bowel: There is no bowel obstruction. There is mild colonic diverticulosis without CT evidence of acu te diverticulitis. The appendix is not identified and reported surgically absent. Peritoneum: There is no intraperitoneal free air or abdominal ascites. There is a small fat-containin g umbilical hernia. Lymphadenopathy: Calcified mesenteric lymph nodes are noted in the right lower quadrant. No pathologi maddison enlarged lymph nodes are seen in the abdomen or pelvis. There are shotty subcentimeter retroper itoneal lymph nodes. Pelvic viscera: The bladder and uterus are normal as visualized. Cystic adnexal/ovarian lesions are u nchanged from 2017. These measure up to 4.9 cm on the right and 3.9 cm on the left. Surgical clips ar e noted in the pelvis bilaterally. Skeletal structures: The skeletal structures are osteopenic. There is moderate lumbosacral spondylosi s. 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 No lytic or blastic lesions are seen. There is chronic defo rmity of the inferior right pubic ring. IMPRESSION: 1. Findings are consistent with acute pancreatitis. Correlate with clinical findings and serum amylas e/lipase levels. 2. The gallbladder surgically absent and there is extensive choledocholithiasis with numerous calcifi ed gallstones seen within the common bile duct. MRCP is unlikely to provide further information. GI f ollow-up is recommended. 3. Left-sided nephrolithiasis. 4. Hiatal hernia. 5. Hepatomegaly and hepatic steatosis. 6. Cystic ovarian lesions are pathologically indeterminant and similar to prior studies. 7. Additional findings as above. ACT 112: Negative or not required by law. Electronically signed by: Jaime Jiménez M.D. 09/28/2020 5:07 PM
[2020-09-28] MEDS ORDERED: PIPERACILL/TAZOBAC CONSULT ACTIVE PRN ×2 (17:45→22:12)
[2020-09-28] MEDS ORDERED: PIPERACILLIN/TAZOBACTAM 4.5 GM in DEXTROSE 5% 100 ML IV ONE (17:45)
[2020-09-28] MEDS ORDERED: MoRPHine SULFATE 10 MG/ML CARP/VIAL IV STA (17:58)
[2020-09-28] MEDS ORDERED: diphenhydrAMINE 50 MG/ML VIAL ONE (18:44)
[2020-09-28] MEDS ORDERED: PROMETHAZINE HCL 25 MG in SODIUM CHLORIDE 0.9% 50 ML IV STA (20:02)
[2020-09-28] MEDS ORDERED: PROMETHAZINE 25 MG/51 ML BAG IV STA (20:12)
--- NOTE | 2020-09-28 20:16 | History & Physical Report ---
Date of Service September 28, 2020 Assessment & Plan (1) Choledocholithiasis: Plan: Extensive choledocholithiasis/pancreatitis- Per CT reading, no value to ordering an MRCP NPO Zosyn 3.375 g IV every 8 hours Zofran 4 mg IV every 6 hours as needed Famotidine 20 mg IV every 12 hours Follow serial CBC with differential, chemistry profile and lipase levels Consult gastroenterology for ERCP (2) Acute pancreatitis: Plan: See above (3) Restless leg syndrome: Plan: Hold ropinirole for now (4) Diabetes: Plan: Placed on Accu-Cheks before meals and at bedtime with NovoLog coverage per scale Hold glipizide Check hemoglobin A1c (5) Hypertension: Plan: Hold losartan and HCTZ while n.p.o. (6) Acute kidney injury: Plan: Creatinine 1.72 upon admission, with base 1.16 Holding losartan and HCTZ as noted above Received 2 L NSS in the ED Continue NSS at 80 mils per hour Follow labs serially in a.m. History of Present Illness Chief Complaint: The patient presents to the emergency department with complaint of abdominal pain with nausea and vomiting over the past 2 days. Primary Care Provider: Ye Trejo MD The patient is a 75-year-old female with a past medical history including RLS, diabetes mellitus, metastatic malignant neuroendocrine tumor to the liver, IPMN, sleep disturbance, migraine, peripheral neuropathy and hypertension. She presents with symptoms as noted above. Work-up in the emergency department included a CT scan of abdomen and pelvis which showed extensive choledocholithiasis and acute pancreatitis. Significant laboratories include: Potassium 2.9, creatinine 1.72, glucose 294, lipase 1147, AST 149, ALT 312, total bilirubin 3.6, albumin 3.1 Allergies Allergy/AdvReac Type Severity Reaction Status Date / Time ibuprofen Allergy Intermediate HIVES AND Verified 09/28/20 17:11 SWELLING pramipexole [From Mirapex] AdvReac Hyperactivi Verified 09/28/20 17:11 ty Home Medications Medication Instructions Recorded Confirmed Type acetaminophen 500 mg tablet 500 mg PO Q6H PRN 06/26/18 09/28/20 History (Tylenol Extra Strength) albuterol sulfate 90 mcg/actuation 2 puff INHALATION Q4H PRN 06/26/18 09/28/20 History aerosol inhaler (Ventolin HFA) aspirin 81 mg tablet,delayed 81 mg PO QAM 06/26/18 09/28/20 History release multivitamin 1 tab PO QAM 06/26/18 09/28/20 History prochlorperazine maleate 10 mg 10 mg PO TID PRN 10/30/19 09/28/20 History tablet (Compazine) octreotide acetate 50 mcg/mL 50 mcg SUBCUT MONTHLY ml 12/17/19 09/28/20 History injection solution venlafaxine 37.5 mg 37.5 mg PO QAM #90 cap 04/02/20 09/28/20 Rx capsule,extended release 24 hr ropinirole 0.5 mg tablet 0.5 mg PO .COMPLEX 30 Days #45 tab 05/28/20 09/28/20 Rx diazepam 5 mg tablet (Valium) 2.5 mg PO HS PRN #30 tab 06/23/20 09/28/20 Rx blood sugar diagnostic (OneTouch #50 ea 06/25/20 06/25/20 Rx Verio test strips) lancets 30 gauge ([facility] 06/25/20 06/25/20 Rx Lancets) gabapentin 300 mg capsule 600 mg PO TID 90 Days #540 cap 08/12/20 09/28/20 Rx hydrochlorothiazide 25 mg tablet 25 mg PO DAILY #90 tab 08/17/20 09/28/20 Rx erenumab-aooe 140 mg/mL 140 mg SUBCUT .COMPLEX 30 Days #1 08/20/20 09/28/20 Rx subcutaneous auto-injector ml (Aimovig Autoinjector) glipizide 10 mg tablet 10 mg PO BID #60 tab 08/20/20 09/28/20 Rx ondansetron 4 mg disintegrating 4 mg PO Q8H PRN #30 tab 08/24/20 09/28/20 Rx tablet topiramate 50 mg tablet (Topamax) 50 mg PO BID 90 Days #180 tab 09/04/20 09/28/20 Rx losartan 50 mg tablet 50 mg PO DAILY #90 tab 09/16/20 09/28/20 Rx Past Med/Surg History Medical History Abdominal pain Hypertension Kidney stones Ovarian cyst Surgical History H/O cataract removal with insertion of prosthetic lens History of appendectomy History of esophagogastroduodenoscopy (EGD) S/P carpal tunnel release S/P cataract surgery S/P cholecystectomy S/P colonoscopy S/P eye surgery surgery of inner eye strands S/P foot surgery S/P hernia repair Paraesophageal wwith lap w/ mesh S/P laser trabeculoplasty of eye S/P spinal surgery cerv, Below C2 Family History Mother Lung cancer Hypertension Cancer Daughter Colorectal cancer Father Diabetes Heart disease Myocardial infarction Grandmother (Maternal) Lung cancer Hypertension Glaucoma Denies family history of Ovarian cancer Prostate cancer Breast cancer Social History Smoking Status: Former smoker Tobacco Type: Cigarettes Number of Years Since Quit: 35; Second Hand Exposure: Yes; Hx Alcohol Use: No Hx Substance Use: No Preferred Language: Welsh Communication Ability: Effective Visual Impairment: No Limitations Hearing Ability: Normal Electrical Equipment Technician Required: No Beliefs That Will Affect Care: None marital status: Current Living Situation: Spouse current occupational status: retired Other Information That Helps Us Care for You: No Feels Safe at Home: Yes Safety Concerns: Feels Safe At This Time Childhood Exposure to Second-Hand Smoke: Yes Dental Care, Regularly: Yes Physical Activity Frequency: Does not Exercise Physical Activity Frequency Comment: Yoga Seatbelt Use: always Sunscreen Use: Yes Assistive Devices: None Review of Systems Review of Systems: The patient denies chest pain, palpitations, shortness of breath, dyspnea on exertion, cough, lower extremity swelling, sore throat, diarrhea , constipation, abdominal pain, pelvic pain, blood in urine or stool, dysuria, urinary frequency or urgency, lightheadedness, dizziness, headache, memory loss, loss of consciousness, rash, abnormal bruising or bleeding, imbalance, focal weakness, numbness or tingling in arms or legs, generalized arthralgias or myalgias, back or neck pain, or night sweats. The review of systems is otherwise negative other than for that already noted above, and at least 10 systems have been reviewed. Physical Exam Physical Exam: The patient is awake, alert and oriented 3, well developed and well nourished, normocephalic and atraumatic, lying in bed and in mild distress secondary to abdominal discomfort. HEENT--PERRL, EOMI, mucous membranes and oropharynx dry. Neck--supple. No JVD. No bruits. Thyroid normal, trachea midline, no adenopathy. Heart--normal S1 and S2. No murmurs, rubs or gallops. Lungs--clear bilaterally, no respiratory distress, no accessory muscle use. Abdomen--normal bowel sounds and soft. Nontender. Nondistended. Extremities--no cyanosis or clubbing. No edema. There are good distal pulses b/l. Dermatologic--normal skin turgor, normal color, no abnormal lymph nodes, no rash. Neurologic--cranial nerves II through XII grossly intact. Rheumatologic--normal range of motion. Psychiatric--normal affect. Results & Data Results & Data ([facility]) Vital Signs (Past 12 Hours) Vital Signs Temp Pulse Resp BP Pulse Ox 09/28/20 18:30 83 15 141/62 H 94 09/28/20 18:00 83 16 145/63 H 97 09/28/20 17:30 16 123/69 96 09/28/20 17:00 86 19 158/79 H 96 09/28/20 16:18 80 18 175/84 H 96 09/28/20 13:01 97.2 F L 96 H 16 138/67 97 Laboratory Results Laboratory Results WBC 10.51 K/uL (4.8-10.8) 09/28/20 14:15 RBC 4.05 M/uL (4.2-5.4) L 09/28/20 14:15 Hgb 12.3 g/dL (12.0-16.0) 09/28/20 14:15 Hct 36.3 % (37-47) L 09/28/20 14:15 MCV 89.6 fL (80-100) 09/28/20 14:15 MCH 30.4 pg (25-34) 09/28/20 14:15 MCHC 33.9 g/dL (32-36) 09/28/20 14:15 RDW Std Deviation 46.6 fL (36.4-46.3) H 09/28/20 14:15 RDW Coeff of Geraldo 14.2 % (11.5-14.5) 09/28/20 14:15 Plt Count 279 K/uL (130-400) 09/28/20 14:15 MPV 11.5 fL (7.4-10.4) H 09/28/20 14:15 Immature Gran % (Auto) 0.8 % 09/28/20 14:15 Neut % (Auto) 92.0 % 09/28/20 14:15 Lymph % (Auto) 1.7 % 09/28/20 14:15 [place] % (Auto) 5.2 % 09/28/20 14:15 Eos % (Auto) 0.2 % 09/28/20 14:15 Baso % (Auto) 0.1 % 09/28/20 14:15 Neut # (Auto) 9.67 K/uL (1.4-6.5) H 09/28/20 14:15 Lymph # (Auto) 0.18 K/uL (1.2-3.4) L 09/28/20 14:15 [place] # (Auto) 0.55 K/uL (0.11-0.59) 09/28/20 14:15 Eos # (Auto) 0.02 K/uL (0-0.5) 09/28/20 14:15 Baso # (Auto) 0.01 K/uL (0-0.2) 09/28/20 14:15 Immature Gran # (Auto) 0.08 K/uL (0.00-0.02) H 09/28/20 14:15 Sodium 135 mmol/L (136-145) L 09/28/20 14:15 Potassium 2.9 mmol/L (3.5-5.1) L 09/28/20 14:15 Chloride 100 mmol/L (98-107) 09/28/20 14:15 Carbon Dioxide 25 mmol/L (21-32) 09/28/20 14:15 Anion Gap 10.0 (3-11) 09/28/20 14:15 BUN 39 mg/dl (7-18) H 09/28/20 14:15 Creatinine 1.72 mg/dl (0.6-1.2) H 09/28/20 14:15 Est Cr Clr Drug Dosing Not Reportable 09/28/20 14:15 Est GFR ( Amer) 33.6 ml/min 09/28/20 14:15 Est GFR (Non-Af Amer) 29.0 ml/min 09/28/20 14:15 BUN/Creatinine Ratio 22.9 (10-20) H 09/28/20 14:15 Glucose 294 mg/dl (70-99) H 09/28/20 14:15 POC Glucose 232 mg/dl (70-99) H 09/28/20 23:58 Calcium 9.0 mg/dl (8.5-10.1) 09/28/20 14:15 Total Bilirubin 3.6 mg/dl (0.2-1) H 09/28/20 14:15 AST 149 U/L (15-37) H 09/28/20 14:15 ALT 312 U/L (12-78) H 09/28/20 14:15 Alkaline Phosphatase 306 U/L (45-117) H 09/28/20 14:15 Total Protein 7.8 gm/dl (6.4-8.2) 09/28/20 14:15 Albumin 3.1 gm/dl (3.4-5.0) L 09/28/20 14:15 Globulin 4.7 gm/dl (2.5-4.0) H 09/28/20 14:15 Albumin/Globulin Ratio 0.7 (0.9-2) L 09/28/20 14:15 Lipase 1147 U/L (73-393) H 09/28/20 14:15 Specimen Hemolysis 09/28/20 14:15 COVID-19 Eval Order Covid19 at [facility], [place] 09/28/20 17:04 SARS-CoV-2 (PCR) NEGATIVE (Negative) 09/28/20 17:04 Impressions Abdomen/Pelvis CT 09/28/20 16:17 CT SCAN OF THE ABDOMEN AND PELVIS WITHOUT IV CONTRAST CLINICAL HISTORY: Generalized abdominal pain. Nausea and vomiting. COMPARISON STUDY: Abdominal CT dated 09/14/2016 and 06/26/2018. TECHNIQUE: CT scan of the abdomen and pelvis is performed from the lung bases to the proximal femora. Images are reviewed in the axial, sagittal, and coronal planes. IV contrast was not administered for this examination. A dose lowering technique was utilized adhering to the principles of ALARA. CT DOSE: 523.83 mGy.cm FINDINGS: Lung bases: The heart is mildly enlarged and without pericardial effusion. The coronary arteries are densely calcified. A 3 mm right middle lobe pulmonary nodule image #27 and a 3 mm pleural-based nodule in the left lower lobe on image #37 are unchanged from 2017. The lung bases are otherwise clear noting bibasilar scarring/atelectasis. There is a moderate hiatal hernia. Liver: The unenhanced liver is enlarged, measuring 21.7 cm in length. The liver demonstrates diffusely diminished attenuation consistent with hepatic steatosis. There is mild central intrahepatic biliary ductal dilatation. Gallbladder: Surgically absent noting clips in the gallbladder fossa. There are numerous calcified gallstones within the common bile duct. The largest measures at least 1.3 cm as seen on image #151. Spleen: Normal in size and attenuation. Pancreas: The pancreas appears mildly edematous. There is peripancreatic stranding and trace fluid. Findings are consistent with acute pancreatitis. There is no evidence of organized peripancreatic fluid collection on this unenhanced examination. Adrenal glands: Unremarkable. Kidneys: The unenhanced kidneys are normal in size and without hydronephrosis. There are least 7 nonobstructing left renal calculi which measure up to 11 mm. No right renal calculi are identified and there is no ureteral stone. There is no evidence of contour deforming renal mass lesion. Abdominal vasculature: The abdominal aorta is normal in course and caliber noting advanced atherosclerotic calcification. Bowel: There is no bowel obstruction. There is mild colonic diverticulosis without CT evidence of acute diverticulitis. The appendix is not identified and reported surgically absent. Peritoneum: There is no intraperitoneal free air or abdominal ascites. There is a small fat-containing umbilical hernia. Lymphadenopathy: Calcified mesenteric lymph nodes are noted in the right lower quadrant. No pathologically enlarged lymph nodes are seen in the abdomen or pelvis. There are shotty subcentimeter retroperitoneal lymph nodes. Pelvic viscera: The bladder and uterus are normal as visualized. Cystic adnexal/ovarian lesions are unchanged from 2017. These measure up to 4.9 cm on the right and 3.9 cm on the left. Surgical clips are noted in the pelvis bilaterally. Skeletal structures: The skeletal structures are osteopenic. There is moderate lumbosacral spondylosis. There are bilateral pars defects at L5 with advanced disc space narrowing, advanced endplate sclerosis, and 10 mm anterolisthesis at L5-S1. No lytic or blastic lesions are seen. There is chronic deformity of the inferior right pubic ring. IMPRESSION: 1. Findings are consistent with acute pancreatitis. Correlate with clinical findings and serum amylase/lipase levels. 2. The gallbladder surgically absent and there is extensive choledocholithiasis with numerous calcified gallstones seen within the common bile duct. MRCP is unlikely to provide further information. GI follow-up is recommended. 3. Left-sided nephrolithiasis. 4. Hiatal hernia. 5. Hepatomegaly and hepatic steatosis. 6. Cystic ovarian lesions are pathologically indeterminant and similar to prior studies. 7. Additional findings as above. ACT 112: Negative or not required by law. Electronically signed by: Jaime Jiménez M.D. 09/28/2020 5:07 PM Code Status & VTE Plan Code Status Full code VTE Prophylaxis Plan VTE Prophylaxis will be ordered: Yes PG Care Time/CCT Total # of Minutes Spent Total Time Spent with Patient: Total time spent is greater than 50% in coordinat ion of care (as documented) at patient's floor/unit and/or counseling patient: Coding Level of Care Code 04693 Initial Inpt Care Lvl 3 Diagnoses Choledocholithiasis K80.50 Acute pancreatitis K85.90 Acute pancreatitis complication: unspecified Pancreatitis type: unspecified pancreatitis type Restless leg syndrome G25.81 Diabetes E11.9 Hypertension I10 Acute kidney injury N17.9 (1) Acute pancreatitis Acute pancreatitis complication: unspecified Pancreatitis type: unspecified pancreatitis type Qualified Code(s): K85.90 - Acute pancreatitis without necrosis or infection, unspecified
[2020-09-28] MEDS ORDERED: CARBOHYDRATES FOR HYPOGLYCEMIA PO PRN (22:12)
[2020-09-28] MEDS ORDERED: GLUCOSE 10 TABS/TUBE PO PRN (22:12)
[2020-09-28] MEDS ORDERED: GLUCOSE 40% GEL 15 GM TUBE PO PRN (22:12)
[2020-09-28] MEDS ORDERED: PIPERACILLIN/TAZOBACTAM 4.5 GM in DEXTROSE 5% 100 ML IV SCH (22:12)
[2020-09-28] MEDS ORDERED: DEXTROSE 50% 50 ML SYRINGE IV PRN (22:12)
[2020-09-28] MEDS ORDERED: GLUCAGON FOR INJ 1 MG VIAL SQ PRN (22:12)
[2020-09-28] MEDS: PIPERACILLIN/TAZOBACTAM 3.375 GM in DEXTROSE 5% 100 ML IV SCH (22:44)
[2020-09-28] MEDS ORDERED: INSULIN ASPART 100 UNITS/ML 3 ML PEN SC SCH (22:45)
[2020-09-29] MEDS ORDERED: Nursing to Pharmacy Communication SCH ×2 (00:30→16:00)
[2020-09-29] MEDS: ONDANSETRON INJ 2 MG/ML 2 ML VIAL IV PRN ×2 (02:40→08:38)
[2020-09-29] MEDS ORDERED: SODIUM CHLORIDE 0.9% 1000ML 1,000 ML IV SCH (04:45)
[2020-09-29] MEDS: PIPERACILLIN/TAZOBACTAM 3.375 GM in DEXTROSE 5% 100 ML IV SCH ×3 (06:02→22:18)
[2020-09-29] MEDS: INSULIN ASPART 100 UNITS/ML 3 ML PEN SC SCH ×4 (06:05→20:41)
[2020-09-29] MEDS ORDERED: MoRPHine SULFATE 4 MG/ML 1 ML CARP\\VIAL IV STA (06:13)
[2020-09-29 07:51] LABS: Hematocrit (blood only) 31.2 % (37-47); Hemoglobin 10.2 g/dL (12.0-16.0); Mean Corpuscular Hemoglobin 29.5 pg (25-34); Mean Corpuscular Hgb Conc 32.7 g/dL (32-36); Mean Corpuscular Volume 90.2 fL (80-100); Platelet Count 227 K/uL (130-400); RDW Coefficient of Variation 14.2 % (11.5-14.5); Red Blood Count 3.46 M/uL (4.2-5.4); White Blood Count 6.76 K/uL (4.8-10.8)
[2020-09-29 08:19] LABS: Albumin Level 2.4 gm/dl (3.4-5.0); BUN Creatinine Ratio 22.3 (10-20); Calcium 8.4 mg/dl (8.5-10.1); Creatinine Clr Calc Pharmacy 34.1 ml/min; Est GFR (African American) 33.6 ml/min; Magnesium 2.4 mg/dl (1.8-2.4); Potassium 2.7 mmol/L (3.5-5.1)
[2020-09-29 08:27] LABS: Eosinophils # (auto) 0.01 K/uL (0-0.5); Eosinophils % (auto) 0.1 %; Immature Granulocytes # (auto) 0.02 K/uL (0.00-0.02); Immature Granulocytes % (auto) 0.3 %; Lymphocytes # (auto) 0.48 K/uL (1.2-3.4); Lymphocytes % (auto) 7.1 %; Monocytes # (auto) 0.22 K/uL (0.11-0.59); Monocytes % (auto) 3.3 %; Neutrophils # (auto) 6.03 K/uL (1.4-6.5); Neutrophils % (auto) 89.2 %
[2020-09-29 08:28] LABS: Albumin Globulin Ratio 0.6 (0.9-2); Bilirubin,Total 1.7 mg/dl (0.2-1); Globulin 4.2 gm/dl (2.5-4.0); Total Protein 6.6 gm/dl (6.4-8.2)
--- NOTE | 2020-09-29 08:43 | Gastrointestinal Consultation ---
Date of Consultation September 29, 2020 Assessment & Plan (1) Choledocholithiasis: 75 year old female with history of NET admitted w/ pain nausea, vomiting, CT imaging concerning for CBD stones, pancreatitis NPO LR 150-200mL/hr Antiemetics PRN Pain control PRN ERCP timing to be determined Thank you for allowing us to participate in the care of this patient. Please call with any acute changes, questions or concerns. Please see addendum below with additional recommendation from my supervising physician. Supervising Physician Co-Signing Physician Notes I have seen and examined the patient with CLEMENT Morton whose note reflects our findings and plan. Stones in duct on imaging. Gallstone pancreatitis. NPO. IVF hydration. ERCP planned for later today. 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 CTAP 2020: . Findings are consistent with acute pancreatitis. Correlate with clinical findings and serum amylase/lipase levels. 2. The gallbladder surgically absent and there is extensive choledocholithiasis with numerous calcified gallstones seen within the common bile duct. MRCP is unlikely to provide further information. GI follow-up is recommended. 3. Left-sided nephrolithiasis. 4. Hiatal hernia. 5. Hepatomegaly and hepatic steatosis. 6. Cystic ovarian lesions are pathologically indeterminant and similar to prior studies. 7. Additional findings as above. Allergies Allergy/AdvReac Type Severity Reaction Status Date / Time ibuprofen Allergy Intermediate HIVES AND Verified 09/28/20 17:11 SWELLING pramipexole [From Mirapex] AdvReac Hyperactivi Verified 09/28/20 17:11 ty Home Medications Medication Instructions Recorded Confirmed Type acetaminophen 500 mg tablet 500 mg PO Q6H PRN 06/26/18 09/28/20 History (Tylenol Extra Strength) albuterol sulfate 90 mcg/actuation 2 puff INHALATION Q4H PRN 06/26/18 09/28/20 History aerosol inhaler (Ventolin HFA) aspirin 81 mg tablet,delayed 81 mg PO QAM 06/26/18 09/28/20 History release multivitamin 1 tab PO QAM 06/26/18 09/28/20 History prochlorperazine maleate 10 mg 10 mg PO TID PRN 10/30/19 09/28/20 History tablet (Compazine) octreotide acetate 50 mcg/mL 50 mcg SUBCUT MONTHLY ml 12/17/19 09/28/20 History injection solution venlafaxine 37.5 mg 37.5 mg PO QAM #90 cap 04/02/20 09/28/20 Rx capsule,extended release 24 hr ropinirole 0.5 mg tablet 0.5 mg PO .COMPLEX 30 Days #45 tab 05/28/20 09/28/20 Rx diazepam 5 mg tablet (Valium) 2.5 mg PO HS PRN #30 tab 06/23/20 09/28/20 [facility]25/20 06/25/20 Rx Verio test strips) lancets 30 gauge ([facility] 06/25/20 06/25/20 Rx Lancets) gabapentin 300 mg capsule 600 mg PO TID 90 Days #540 cap 08/12/20 09/28/20 Rx hydrochlorothiazide 25 mg tablet 25 mg PO DAILY #90 tab 08/17/20 09/28/20 Rx erenumab-aooe 140 mg/mL 140 mg SUBCUT .COMPLEX 30 Days #1 08/20/20 09/28/20 Rx subcutaneous auto-injector ml (Aimovig Autoinjector) glipizide 10 mg tablet 10 mg PO BID #60 tab 08/20/20 09/28/20 Rx ondansetron 4 mg disintegrating 4 mg PO Q8H PRN #30 tab 08/24/20 09/28/20 Rx tablet topiramate 50 mg tablet (Topamax) 50 mg PO BID 90 Days #180 tab 09/04/20 09/28/20 Rx losartan 50 mg tablet 50 mg PO DAILY #90 tab 09/16/20 09/28/20 Rx Patient History Medical History Abdominal pain Hypertension Kidney stones Ovarian cyst Surgical History H/O cataract removal with insertion of prosthetic lens History of appendectomy History of esophagogastroduodenoscopy (EGD) S/P carpal tunnel release S/P cataract surgery S/P cholecystectomy S/P colonoscopy S/P eye surgery surgery of inner eye strands S/P foot surgery S/P hernia repair Paraesophageal wwith lap w/ mesh S/P laser trabeculoplasty of eye S/P spinal surgery cerv, Below C2 Family History Mother Lung cancer Hypertension Cancer Daughter Colorectal cancer Father Diabetes Heart disease Myocardial infarction Grandmother (Maternal) Lung cancer Hypertension Glaucoma Denies family history of Ovarian cancer Prostate cancer Breast cancer Social History Smoking Status: Former smoker Tobacco Type: Cigarettes Number of Years Since Quit: 35; Second Hand Exposure: Yes; Hx Alcohol Use: No Hx Substance Use: No Preferred Language: Telugu Communication Ability: Effective Visual Impairment: No Limitations Hearing Ability: Normal Patent Examiner Required: No Beliefs That Will Affect Care: None marital status: Current Living Situation: Spouse current occupational status: retired Other Information That Helps Us Care for You: No Feels Safe at Home: Yes Safety Concerns: Feels Safe At This Time Childhood Exposure to Second-Hand Smoke: Yes Dental Care, Regularly: Yes Physical Activity Frequency: Does not Exercise Physical Activity Frequency Comment: Yoga Seatbelt Use: always Sunscreen Use: Yes Assistive Devices: None Review of Systems Review of Systems: All systems reviewed & are unremarkable except as noted in HPI & below Physical Exam Constitutional: WD/WN, vitals as above Respiratory: normal respiratory effort, lungs clear to auscultation Cardiovascular: RRR, no murmur, no edema Gastrointestinal (Abdomen): soft, abd pain w/ palpation Results & Data ([facility]) Vital Signs (Past 12 Hours) Vital Signs Temp Pulse Pulse Resp BP BP Pulse Ox 09/29/20 08:13 36.9 C 72 16 143/77 H 93 09/28/20 22:00 36.8 C 87 18 175/75 H 94 09/28/20 21:30 90 20 166/77 H 94 09/28/20 21:01 86 23 158/80 H 97 Laboratory Results 09/29/20 09/29/20 09/29/20 Range/Units 07:29 07:29 07:29 WBC 6.76 (4.8-10.8) K/uL RBC 3.46 L (4.2-5.4) M/uL Hgb 10.2 L (12.0-16.0) g/dL Hct 31.2 L (37-47) % MCV 90.2 (80-100) fL MCH 29.5 (25-34) pg MCHC 32.7 (32-36) g/dL RDW Std Deviation 47.0 H (36.4-46.3) fL RDW Coeff of Geraldo 14.2 (11.5-14.5) % Plt Count 227 (130-400) K/uL MPV 11.0 H (7.4-10.4) fL Immature Gran % (Auto) 0.3 % Neut % (Auto) 89.2 % Lymph % (Auto) 7.1 % [place] % (Auto) 3.3 % Eos % (Auto) 0.1 % Baso % (Auto) 0.0 % Neut # (Auto) 6.03 (1.4-6.5) K/uL Lymph # (Auto) 0.48 L (1.2-3.4) K/uL [place] # (Auto) 0.22 (0.11-0.59) K/uL Eos # (Auto) 0.01 (0-0.5) K/uL Baso # (Auto) 0.00 (0-0.2) K/uL Immature Gran # (Auto) 0.02 (0.00-0.02) K/uL Sodium 139 (136-145) mmol/L Potassium 2.7 L (3.5-5.1) mmol/L Chloride 105 (98-107) mmol/L Carbon Dioxide 27 (21-32) mmol/L Anion Gap 7.0 (3-11) BUN 38 H (7-18) mg/dl Creatinine 1.72 H (0.6-1.2) mg/dl Est Cr Clr Drug Dosing 34.1 Est GFR ( Amer) 33.6 ml/min Est GFR (Non-Af Amer) 29.0 ml/min BUN/Creatinine Ratio 22.3 H (10-20) Glucose 240 H (70-99) mg/dl POC Glucose (70-99) mg/dl Estimat Average Glucose Pending Hemoglobin A1c Pending Calcium 8.4 L (8.5-10.1) mg/dl Magnesium 2.4 (1.8-2.4) mg/dl Total Bilirubin 1.7 H D (0.2-1) mg/dl AST 46 H (15-37) U/L ALT 185 H (12-78) U/L Alkaline Phosphatase 241 H (45-117) U/L Total Protein 6.6 (6.4-8.2) gm/dl Albumin 2.4 L (3.4-5.0) gm/dl Globulin 4.2 H (2.5-4.0) gm/dl Albumin/Globulin Ratio 0.6 L (0.9-2) Lipase 201 (73-393) U/L Specimen Hemolysis COVID-19 Eval Order SARS-CoV-2 (PCR) (Negative) 09/29/20 09/28/20 09/28/20 Range/Units 05:55 23:58 22:42 WBC (4.8-10.8) K/uL RBC (4.2-5.4) M/uL Hgb (12.0-16.0) g/dL Hct (37-47) % MCV (80-100) fL MCH (25-34) pg MCHC (32-36) g/dL RDW Std Deviation (36.4-46.3) fL RDW Coeff of Geraldo (11.5-14.5) % Plt Count (130-400) K/uL MPV (7.4-10.4) fL Immature Gran % (Auto) % Neut % (Auto) % Lymph % (Auto) % [place] % (Auto) % Eos % (Auto) % Baso % (Auto) % Neut # (Auto) (1.4-6.5) K/uL Lymph # (Auto) (1.2-3.4) K/uL [place] # (Auto) (0.11-0.59) K/uL Eos # (Auto) (0-0.5) K/uL Baso # (Auto) (0-0.2) K/uL Immature Gran # (Auto) (0.00-0.02) K/uL Sodium (136-145) mmol/L Potassium (3.5-5.1) mmol/L Chloride (98-107) mmol/L Carbon Dioxide (21-32) mmol/L Anion Gap (3-11) BUN (7-18) mg/dl Creatinine (0.6-1.2) mg/dl Est Cr Clr Drug Dosing Est GFR ( Amer) ml/min Est GFR (Non-Af Amer) ml/min BUN/Creatinine Ratio (10-20) Glucose (70-99) mg/dl POC Glucose 265 H 232 H 235 H (70-99) mg/dl Estimat Average Glucose Hemoglobin A1c Calcium (8.5-10.1) mg/dl Magnesium (1.8-2.4) mg/dl Total Bilirubin (0.2-1) mg/dl AST (15-37) U/L ALT (12-78) U/L Alkaline Phosphatase (45-117) U/L Total Protein (6.4-8.2) gm/dl Albumin (3.4-5.0) gm/dl Globulin (2.5-4.0) gm/dl Albumin/Globulin Ratio (0.9-2) Lipase (73-393) U/L Specimen Hemolysis COVID-19 Eval Order SARS-CoV-2 (PCR) (Negative) 09/28/20 09/28/20 09/28/20 Range/Units 17:04 17:04 14:15 WBC (4.8-10.8) K/uL RBC (4.2-5.4) M/uL Hgb (12.0-16.0) g/dL Hct (37-47) % MCV (80-100) fL MCH (25-34) pg MCHC (32-36) g/dL RDW Std Deviation (36.4-46.3) fL RDW Coeff of Geraldo (11.5-14.5) % Plt Count (130-400) K/uL MPV (7.4-10.4) fL Immature Gran % (Auto) % Neut % (Auto) % Lymph % (Auto) % [place] % (Auto) % Eos % (Auto) % Baso % (Auto) % Neut # (Auto) (1.4-6.5) K/uL Lymph # (Auto) (1.2-3.4) K/uL [place] # (Auto) (0.11-0.59) K/uL Eos # (Auto) (0-0.5) K/uL Baso # (Auto) (0-0.2) K/uL Immature Gran # (Auto) (0.00-0.02) K/uL Sodium 135 L (136-145) mmol/L Potassium 2.9 L (3.5-5.1) mmol/L Chloride 100 (98-107) mmol/L Carbon Dioxide 25 (21-32) mmol/L Anion Gap 10.0 (3-11) BUN 39 H (7-18) mg/dl Creatinine 1.72 H (0.6-1.2) mg/dl Est Cr Clr Drug Dosing Not Reportable Est GFR ( Amer) 33.6 ml/min Est GFR (Non-Af Amer) 29.0 ml/min BUN/Creatinine Ratio 22.9 H (10-20) Glucose 294 H (70-99) mg/dl POC Glucose (70-99) mg/dl Estimat Average Glucose Hemoglobin A1c Calcium 9.0 (8.5-10.1) mg/dl Magnesium (1.8-2.4) mg/dl Total Bilirubin 3.6 H (0.2-1) mg/dl AST 149 H (15-37) U/L ALT 312 H (12-78) U/L Alkaline Phosphatase 306 H (45-117) U/L Total Protein 7.8 (6.4-8.2) gm/dl Albumin 3.1 L (3.4-5.0) gm/dl Globulin 4.7 H (2.5-4.0) gm/dl Albumin/Globulin Ratio 0.7 L (0.9-2) Lipase 1147 H (73-393) U/L Specimen Hemolysis COVID-19 Eval Order Cov[facility] at [facility] SARS-CoV-2 (PCR) NEGATIVE (Negative) 09/28/20 Range/Units 14:15 WBC 10.51 (4.8-10.8) K/uL RBC 4.05 L (4.2-5.4) M/uL Hgb 12.3 (12.0-16.0) g/dL Hct 36.3 L (37-47) % MCV 89.6 (80-100) fL MCH 30.4 (25-34) pg MCHC 33.9 (32-36) g/dL RDW Std Deviation 46.6 H (36.4-46.3) fL RDW Coeff of Geraldo 14.2 (11.5-14.5) % Plt Count 279 (130-400) K/uL MPV 11.5 H (7.4-10.4) fL Immature Gran % (Auto) 0.8 % Neut % (Auto) 92.0 % Lymph % (Auto) 1.7 % [place] % (Auto) 5.2 % Eos % (Auto) 0.2 % Baso % (Auto) 0.1 % Neut # (Auto) 9.67 H (1.4-6.5) K/uL Lymph # (Auto) 0.18 L (1.2-3.4) K/uL [place] # (Auto) 0.55 (0.11-0.59) K/uL Eos # (Auto) 0.02 (0-0.5) K/uL Baso # (Auto) 0.01 (0-0.2) K/uL Immature Gran # (Auto) 0.08 H (0.00-0.02) K/uL Sodium (136-145) mmol/L Potassium (3.5-5.1) mmol/L Chloride (98-107) mmol/L Carbon Dioxide (21-32) mmol/L Anion Gap (3-11) BUN (7-18) mg/dl Creatinine (0.6-1.2) mg/dl Est Cr Clr Drug Dosing Est GFR ( Amer) ml/min Est GFR (Non-Af Amer) ml/min BUN/Creatinine Ratio (10-20) Glucose (70-99) mg/dl POC Glucose (70-99) mg/dl Estimat Average Glucose Hemoglobin A1c Calcium (8.5-10.1) mg/dl Magnesium (1.8-2.4) mg/dl Total Bilirubin (0.2-1) mg/dl AST (15-37) U/L ALT (12-78) U/L Alkaline Phosphatase (45-117) U/L Total Protein (6.4-8.2) gm/dl Albumin (3.4-5.0) gm/dl Globulin (2.5-4.0) gm/dl Albumin/Globulin Ratio (0.9-2) Lipase (73-393) U/L Specimen Hemolysis COVID-19 Eval Order SARS-CoV-2 (PCR) (Negative)
[2020-09-29] MEDS ORDERED: INSULIN GLARGINE SOLOSTAR 100 UNITS/ML 3 ML PEN SC SCH (09:00)
[2020-09-29] MEDS: LACTATED RINGER'S 1,000 ML IV SCH ×3 (09:29→20:42)
[2020-09-29] MEDS: POTASSIUM CHLORIDE / WTR 10 MEQ/100 ML PLCT IV SCH ×4 (09:40→15:06)
[2020-09-29 11:30] LABS: Estimated Average Glucose 180 mg/dl; Hemoglobin A1C 7.9 % (4.5-5.6)
--- NOTE | 2020-09-29 12:20 | History & Physical Bridge Note ---
Date of Service September 29, 2020 History & Physical Bridge Note I have examined the patient, reviewed the History & Physical and in the interval since the performance of the History & Physical I have noted the following changes of clinical significance: no changes noted. We have discussed the risks to include bleeding, infection, perforation, pancreatitis, pain, need for follow-up procedures and failed biliary cannulation.
[2020-09-29] MEDS ORDERED: fentaNYL citrate 100 MCG/2 ML VIAL ONE ×2 (12:52→13:33)
[2020-09-29] MEDS ORDERED: ONDANSETRON INJ 2 MG/ML 2 ML VIAL ONE (12:53)
[2020-09-29] MEDS ORDERED: LIDOCAINE 2% 2 ML VIAL/AMP(20MG/ML) INFIL ONE (12:53)
[2020-09-29] MEDS ORDERED: DEXAMETHASONE SOD INJ 4 MG/ML VIAL ONE (12:53)
[2020-09-29] MEDS ORDERED: PROPOFOL IV EMULSION 10 MG/ML 20 ML VIAL IV ONE (12:53)
--- NOTE | 2020-09-29 12:55 | Anesthesiology Consultation ---
Date of Service September 29, 2020 Assessment & Plan Chart Review Chart Review: Acceptable Risk for Surgery and Patient NOT seen in Pre Admission Testing Consults Requested none ASA ASA4 Proposed Anesthesia Anesthesia Type: General Risk / Benefits Reviewed With: PT / POA / Parent / Guardian, Accepts Plan and Informed Consent Obtained History Surgery Operation Date: 09/29/20 08:20 Proposed Procedures p Endoscopic Retrograde Cholangiopancreatogram - Theodore Mc DO Height/Weight Height: 5 ft 6 in Weight: 96.2 kg Allergies Allergy/AdvReac Type Severity Reaction Status Date / Time ibuprofen Allergy Intermediate HIVES AND Verified 09/28/20 17:11 SWELLING pramipexole [From Mirapex] AdvReac Hyperactivi Verified 09/28/20 17:11 ty Medications Home Medications Medication Instructions Recorded Confirmed Last Taken acetaminophen 500 mg tablet 500 mg PO Q6H PRN 06/26/18 09/28/20 06/26/18 08:30 (Tylenol Extra Strength) 1000 mg albuterol sulfate 90 mcg/actuation 2 puff INHALATION Q4H PRN 06/26/18 09/28/20 Unknown aerosol inhaler (Ventolin HFA) aspirin 81 mg tablet,delayed 81 mg PO QAM 06/26/18 09/28/20 09/26/20 release multivitamin 1 tab PO QAM 06/26/18 09/28/20 09/26/20 prochlorperazine maleate 10 mg 10 mg PO TID PRN 10/30/19 09/28/20 Unknown tablet (Compazine) octreotide acetate 50 mcg/mL 50 mcg SUBCUT MONTHLY ml 12/17/19 09/28/20 09/14/20 injection solution venlafaxine 37.5 mg 37.5 mg PO QAM #90 cap 04/02/20 09/28/20 09/26/20 capsule,extended release 24 hr ropinirole 0.5 mg tablet 0.5 mg PO .COMPLEX 30 Days #45 tab 05/28/20 09/28/20 Unknown diazepam 5 mg tablet (Valium) 2.5 mg PO HS PRN #30 tab 06/23/20 09/28/20 Unknown blood sugar diagnostic (OneTouch #50 ea 06/25/20 06/25/20 Unknown Verio test strips) lancets 30 gauge ([facility] #100 ea 06/25/20 06/25/20 Unknown Lancets) gabapentin 300 mg capsule 600 mg PO TID 90 Days #540 cap 08/12/20 09/28/20 09/26/20 hydrochlorothiazide 25 mg tablet 25 mg PO DAILY #90 tab 08/17/20 09/28/20 09/26/20 erenumab-aooe 140 mg/mL 140 mg SUBCUT .COMPLEX 30 Days #1 08/20/20 09/28/20 Unknown subcutaneous auto-injector ml (Aimovig Autoinjector) glipizide 10 mg tablet 10 mg PO BID #60 tab 08/20/20 09/28/20 09/26/20 ondansetron 4 mg disintegrating 4 mg PO Q8H PRN #30 tab 08/24/20 09/28/20 Unkn own tablet topiramate 50 mg tablet (Topamax) 50 mg PO BID 90 Days #180 tab 09/04/20 09/28/20 09/26/20 losartan 50 mg tablet 50 mg PO DAILY #90 tab 09/16/20 09/28/20 09/26/20 Active Medications Generic Name Dose Route Start Last Admin Trade Name Freq PRN Reason Stop Dose Admin Piperacillin Sod/Tazobactam 115 mls @ 28.75 mls/hr 09/28/20 23:00 09/29/20 09:41 Sod 3.375 gm/ Dextrose IV 10/08/20 22:59 Infused Q8H RAJAT Infusion Protocol Lactated Ringer's 1,000 mls @ 200 mls/hr 09/29/20 09:00 09/29/20 09:29 Lr IV 10/29/20 08:59 200 mls/hr .Q5H RAJAT Administration Potassium Chloride 10 meq in 100 mls @ 100 mls/hr 09/29/20 09:00 09/29/20 11:35 [place] / Wtr IV 09/29/20 12:59 100 mls/hr Q1H RAJAT Administration Insulin Aspart 0 units 09/29/20 06:00 09/29/20 12:14 Insulin Aspart 100 Units/Ml 3 Ml Pen SC 10/28/20 22:44 3 units Q6 RAJAT Administration Insulin Glargine 5 units 09/29/20 09:00 09/29/20 09:29 Insulin Glargine Solostar 100 Units/Ml 3 Ml Pen SC 10/29/20 08:59 5 units DAILY RAJAT Administration Ondansetron HCl 4 mg 09/28/20 22:12 09/29/20 08:38 Ondansetron Inj 2 Mg/Ml 2 Ml Vial IV 10/28/20 22:11 4 mg Q6H PRN Administration Nausea NPO Date Last Intake of Fluids: 09/27/20 Time Last Intake of Fluids: 15:00 Date Last Intake of Solids: 09/27/20 Time Last Intake of Solids: 15:00 Past Medical History Medical History Abdominal pain Acute kidney injury Acute pancreatitis Anemia Choledocholithiasis Diabetes Hypertension Hypokalemia IPMN (intraductal papillary mucinous neoplasm) Kidney stones Metastatic malignant neuroendocrine tumor to liver [place] 2019[place] [facility] [place], [place] liver lesion and 1.7 cm right colon mass Migraine Obesity Ovarian cyst Peripheral neuropathy Restless leg syndrome Exercise / Class Metabolic Activity III < 4 Walking/Shop/Light housework Past Family History Family History Mother Lung cancer Hypertension Cancer Daughter Colorectal cancer Father Diabetes Heart disease Myocardial infarction Grandmother (Maternal) Lung cancer Hypertension Glaucoma Denies family history of Ovarian cancer Prostate cancer Breast cancer Past Surgical History Surgical History H/O cataract removal with insertion of prosthetic lens History of appendectomy History of esophagogastroduodenoscopy (EGD) S/P carpal tunnel release S/P cataract surgery S/P cholecystectomy S/P colonoscopy S/P eye surgery surgery of inner eye strands S/P foot surgery S/P hernia repair Paraesophageal wwith lap w/ mesh S/P laser trabeculoplasty of eye S/P spinal surgery cerv, Below C2 Past Anesthesia History No Hx of Anesthesia Complications and No Family Hx of Anesthesia Complications History of PONV No Hx of Motion Sickness and History of PONV Social History Smoking Status: Former smoker Hx Alcohol Use: No Hx Substance Use: No Physical Exam Vital Signs Last Vital Signs Temp 37.3 C 09/29/20 12:20 Pulse 75 09/29/20 12:20 Resp 16 09/29/20 12:20 BP 161/79 H 09/29/20 12:20 Pulse Ox 93 09/29/20 12:20 Constitutional + obese ENMT Mouth: no dentition abnormality Thyromental Distance: < 3.5 Finger Breadths Mallampati Class: II Neck normal visual inspection and trachea midline; neck extension not limited Respiratory normal respiratory effort Auscultation: lungs clear to auscultation bilaterally Cardiovascular Rate/Rhythm: regular rate and regular rhythm Heart Sounds: no murmur Vessels: no carotid bruit Musculoskeletal Spine: normal cervical ROM Extremities: extremities normal to inspection Neurologic moves all extremities Motor/Sensory: no sensory deficit Psychiatric Orientation: alert and oriented x 3 Testing Laboratory Results 09/29/20 07:29 09/29/20 07:29 Hemoglobin A1c 7.9 % (4.5-5.6) H 09/29/20 07:29 09/29/20 09/29/20 12:13 05:55 POC Glucose 229 H 265 H
[2020-09-29] MEDS ORDERED: INSULIN ASPART PER UNIT SC STA (13:06)
[2020-09-29] MEDS ORDERED: INSULIN ASPART PER UNIT ONE (13:07)
[2020-09-29] MEDS ORDERED: ONDANSETRON INJ 2 MG/ML 2 ML VIAL IV PRN (13:08)
[2020-09-29] MEDS ORDERED: LABETALOL HCL IV 5 MG/ML 20ML IV PRN (13:08)
[2020-09-29] MEDS ORDERED: ATROPINE SULFATE 0.1 MG/ML 10ML SYR IV PRN (13:08)
[2020-09-29] MEDS ORDERED: ePHEDrine sulfate 50 MG/ML AMP IV PRN (13:08)
[2020-09-29] MEDS ORDERED: fentaNYL citrate 100 MCG/2 ML VIAL IV PRN (13:08)
[2020-09-29] MEDS ORDERED: PHENYLEPHRINE 100MCG/ML 5ML SYR IV PRN (13:08)
[2020-09-29] MEDS ORDERED: INDOMETHACIN 50 MG SUPP PR ONE (13:19)
--- NOTE | 2020-09-29 13:51 | Post Operative Brief Note ---
Immediate Post Op Note v1 Date of Surgery September 29, 2020 Pre & Post Diagnosis Operation Date: 09/29/20 08:20 Pre-Op Diagnosis: Choledocholithiasis, pancreatitis Post-Op Diagnosis: Choledocholithiasis I identified the patient and participated in the time-out.: Yes Procedure Operation Date: 09/29/20 08:20 Actual Procedures p Endoscopic retrograde cholangiopancreatography - Theodore Mc DO Surgeon Theodore Mc DO Cordwainer none Estimated Blood Loss 0 Findings Consistent with Post-Op Diagnosis
--- NOTE | 2020-09-29 13:51 | GI REPORT ---
Patient Name: Anya Dupont Procedure Date: 09/29/2020 1:02 PM Date of : 1945 Admit Type: Inpatient Age: 75 Gender: Female Attending MD: Theodore Mc DO Procedure: ERCP Providers: Theodore Mc DO Referring MD: Dallas Brothers Indications: Abdominal pain of suspected biliary origin, Biliary dilation on Computed Tomogram Scan, Bile duct stone on Computed Tomogram Scan Medicines: General Anesthesia Complications: No immediate complications. Estimated blood loss: Minimal. Estimated Blood Loss: Estimated blood loss was minimal. Procedure: Pre-Anesthesia Assessment: - Prior to the procedure, a History and Physical was performed, and patient medications, allergies and sensitivities were reviewed. The patient's tolerance of previous anesthesia was reviewed. - The risks and benefits of the procedure and the sedation options and risks were discussed with the patient. All questions were answered and informed consent was obtained. - Patient identification and proposed procedure were verified prior to the procedure by the physician, the nurse and the cake cutter machine. The procedure was verified in the procedure room. - Pre-procedure physical examination revealed no contraindications to sedation. - ASA Grade Assessment: IV - A patient with severe systemic disease that is a constant threat to life. - After reviewing the risks and benefits, the patient was deemed in satisfactory condition to undergo the procedure. - The anesthesia plan was to use general anesthesia. - Immediately prior to administration of medications, the patient was re-assessed for adequacy to receive sedatives. - The heart rate, respiratory rate, oxygen saturations, blood pressure, adequacy of pulmonary ventilation, and response to care were monitored throughout the procedure. - The physical status of the patient was re-assessed after the procedure. After obtaining informed consent, the scope was passed under direct vision. Throughout the procedure, the patient's blood pressure, pulse, and oxygen saturations were monitored continuously. The Scope was introduced through the mouth, and advanced to the duodenum and used to inject contrast into the bile duct. The ERCP was accomplished without difficulty. The patient tolerated the procedure well. Findings: A pocket closer film of the abdomen was obtained. Surgical clips, consistent with a previous cholecystectomy, were seen in the area of the right upper quadrant of the abdomen. The esophagus was successfully intubated under direct vision without detailed examination of the pharynx, larynx, and associated structures, and upper GI tract. The upper GI tract was grossly normal. A biliary sphincterotomy had been performed. The sphincterotomy appeared open. The bile duct was deeply cannulated with the short-nosed traction sphincterotome and guidewire. Contrast was injected. I personally interpreted the bile duct images. Contrast extended to the entire biliary tree. A cholecystectomy had been performed. The main bile duct was moderately dilated. The largest diameter was 10 mm. The lower third of the main bile duct, middle third of the main bile duct and upper third of the main bile duct contained filling defect(s) thought to be a stone and sludge. To discover objects, the biliary tree was swept with a 15 mm balloon starting at the left main hepatic duct and right main hepatic duct. Sludge was swept from the duct. Many stones were removed. No stones remained. The endoscope was withdrawn from the patient. Indomethacin 100 mg was given via suppository to decrease the risk of post-ERCP pancreatitis (PEP). Impression: - Prior biliary sphincterotomy appeared open. - A filling defect consistent with a stone and sludge was seen on the cholangiogram. - The entire main bile duct was moderately dilated. - The patient has had a cholecystectomy. - Choledocholithiasis was found. Complete removal was accomplished by balloon extraction. - Indomethacin given to decrease risk of post-ERCP pancreatitis. Recommendation: - [facility]. - Clear liquid diet today. - Use broad spectrum antibiotics for 5 days. Theodore Mc D.O. Theodore Mc, 09/29/2020 1:50:27 PM This report has been signed electronically. Note Initiated On: 09/29/2020 1:02 PM Number of Addenda: 0 I attest to the content of the Intraoperative Record and orders documented therein, exceptions below {[id number]}
--- NOTE | 2020-09-29 13:53 | Communication Note ---
Date of Service: September 29, 2020 ERCP completed this afternoon. Multiple stones were removed from the common bile duct. No obvious stones or sludge remained in the common bile duct at the end of the procedure. Recommendations May have clear liquids this afternoon Continue with IV hydration overnight Continue with broad-spectrum antibiotic coverage for 5 days please Further recommendations per the inpatient GI service
[2020-09-29] MEDS ORDERED: SUCCINYLCHOLINE CHLORIDE 20 MG/ML 10 ML VIAL IV ONE (14:05)
--- NOTE | 2020-09-29 14:21 | Anesthesiology Progress Note ---
Date of Service September 29, 2020 Anesthesia Post Procedure Vital Signs Vital Signs: Temp Pulse Pulse Pulse Resp BP BP 09/29/20 14:15 75 18 148/71 H 09/29/20 14:05 75 18 139/72 09/29/20 13:57 36.7 C 81 19 129/57 L 09/29/20 12:20 37.3 C 75 16 161/79 H 09/29/20 08:13 36.9 C 72 16 143/77 H 09/28/20 22:00 36.8 C 87 18 175/75 H 09/28/20 21:30 90 20 166/77 H 09/28/20 21:01 86 23 158/80 H 09/28/20 20:30 85 19 164/66 H 09/28/20 20:00 85 23 154/64 H 09/28/20 19:30 86 19 137/63 09/28/20 19:00 86 23 158/66 H 09/28/20 18:30 83 15 141/62 H 09/28/20 18:00 83 16 145/63 H 09/28/20 17:30 16 123/69 09/28/20 17:00 86 19 158/79 H 09/28/20 16:18 80 18 175/84 H Pulse Ox 09/29/20 14:15 94 09/29/20 14:05 95 09/29/20 13:57 96 09/29/20 12:20 93 09/29/20 08:13 93 09/28/20 22:00 94 09/28/20 21:30 94 09/28/20 21:01 97 09/28/20 20:30 93 09/28/20 20:00 96 09/28/20 19:30 95 09/28/20 19:00 94 09/28/20 18:30 94 09/28/20 18:00 97 09/28/20 17:30 96 09/28/20 17:00 96 09/28/20 16:18 96 Transfer of Care Handoff Completed per policy Notes Mental Status: alert / awake / arousable Patient Amnestic to Procedure: Yes Nausea / Vomiting: adequately controlled Pain: adequately controlled Airway Patency, RR, SpO2: stable & adequate BP & HR: stable & adequate Hydration State: stable & adequate Anesthetic Complications: no major complications apparent and Pt Satisfied with anesthetic care Notes: The patient is awake and comfortable. Preop BSG was 229. She was given Novolog 5 unit SC preoperatively. Postop BSG was 194 in PACU.
--- NOTE | 2020-09-29 15:16 | Fluoroscopy Report ---
INTRAOPERATIVE RADIOGRAPHS CLINICAL HISTORY: ERCP. Choledocholithiasis and pancreatitis. Fluoroscopy time: 1 minute 45 seconds. FINDINGS: 14 spot fluoroscopic views of the right upper quadrant from an ERCP procedure are correlate d with abdominal CT dated 09/28/2020. Cholecystectomy clips are noted. A catheter is placed within the common bile duct. There are numerous filling defects consistent with choledocholithiasis. A balloon s weep of the duct is performed. No definite residual filling defects identified on the final images. T here is extrahepatic biliary ductal dilatation. IMPRESSION: Intraoperative ERCP images as above. See operative report for detailed findings. Electronically signed by: Jaime Jiménez M.D. 09/29/2020 3:14 PM
[2020-09-29 16:26] LABS: iSTAT Creatinine 1.6 mg/dl (0.6-1.3); iSTAT Potassium 3.3 mmol/L (3.3-5.0)
[2020-09-29 16:27] LABS: iSTAT Hemoglobin 9.2 g/dl (12.0-16.0); iSTAT Ionized Calcium 1.15 mmol/l (1.12-1.32)
--- NOTE | 2020-09-29 19:25 | Hospitalist Progress Note ---
Date of Service September 29, 2020 Assessment & Plan (1) Choledocholithiasis: Plan: Now status post ERCPstones cleared. Antibiotics, pain control, supportive care, slowly advance diet. Discussed low-fat diet to hopefully try to reduce recurrent stone formation (2) Acute pancreatitis: Plan: Anticipate improvement. Continue supportive care. (3) Restless leg syndrome: Plan: Hold ropinirole for now (4) Diabetes: Plan: Continue to titrate insulinsadded basal. Follow sugars (5) Hypertension: Plan: Hold losartan and HCTZ due to RENO (6) Acute kidney injury: Plan: Creatinine 1.72 upon admission, with base 1.16 Holding losartan and HCTZ as noted above Anticipate improvement with fluids Admission and Anticipated Discharge Date Admission Date: September 28, 2020 Subjective feeling better post ERCP less pain tolerating PO water and apple juice discussed dx and ongoing treatment Review of Systems Review of Systems: All systems reviewed & are unremarkable except as noted in HPI & below Physical Exam Physical Exam: General she is awake and alert pleasant no distress. HEENT normocephalic atraumatic mucous membranes moist. Abdomen is soft she has right upper quadrant tenderness but no guarding rebound or rigidity. Breathing unlabored no accessory muscle use good effort. Skin shows no rashes no pallor or icterus. Results & Data Results & Data ([facility]) Vital Signs (Past 12 Hours) Vital Signs Temp Pulse Pulse Resp BP Pulse Ox 09/29/20 18:27 59 L 16 124/68 92 09/29/20 17:00 97.9 F 65 18 115/72 94 09/29/20 16:04 97.7 F 66 18 110/69 94 09/29/20 15:38 69 18 119/72 94 09/29/20 15:15 97.5 F L 68 18 133/77 95 09/29/20 14:45 72 17 143/73 H 90 09/29/20 14:35 72 16 131/76 93 09/29/20 14:25 98.6 F 70 17 127/75 93 09/29/20 14:15 75 18 148/71 H 94 09/29/20 14:05 75 18 139/72 95 09/29/20 13:57 98.1 F 81 19 129/57 L 96 09/29/20 12:20 99.1 F 75 16 161/79 H 93 09/29/20 08:13 98.4 F 72 16 143/77 H 93 PG Care Time/CCT Total # of Minutes Spent Total Time Spent with Patient: Total time spent is greater than 50% in coordination of care (as documented) at patient's floor/unit and/or counseling patient: Coding Level of Care Code 83758 Subseq Hosp Care Lvl 3 Diagnoses Choledocholithiasis K80.50 Acute pancreatitis K85.90 Acute pancreatitis complication: unspecified Pancreatitis type: unspecified pancreatitis type Restless leg syndrome G25.81 Diabetes E11.9 Hypertension I10 Acute kidney injury N17.9 (1) Acute pancreatitis Acute pancreatitis complication: unspecified Pancreatitis type: unspecified pancreatitis type Qualified Code(s): K85.90 - Acute pancreatitis without necrosis or infection, unspecified
[2020-09-29] MEDS: rOPINIRole HCL 0.25 MG TABLET PO SCH (20:40)
[2020-09-29] MEDS: INSULIN GLARGINE SOLOSTAR 100 UNITS/ML 3 ML PEN SC SCH (20:41)
[2020-09-30] MEDS: LACTATED RINGER'S 1,000 ML IV SCH ×3 (04:19→20:02)
[2020-09-30] MEDS: PIPERACILLIN/TAZOBACTAM 3.375 GM in DEXTROSE 5% 100 ML IV SCH ×3 (06:23→22:38)
[2020-09-30] MEDS ORDERED: MoRPHine SULFATE 2 MG/ML CARP IV STA (06:28)
[2020-09-30 06:47] LABS: Basophils # (auto) 0.01 K/uL (0-0.2); Basophils % (auto) 0.1 %; Eosinophils # (auto) 0.13 K/uL (0-0.5); Eosinophils % (auto) 1.7 %; Hematocrit (blood only) 31.3 % (37-47); Hemoglobin 10.1 g/dL (12.0-16.0); Immature Granulocytes # (auto) 0.02 K/uL (0.00-0.02); Immature Granulocytes % (auto) 0.3 %; Lymphocytes # (auto) 0.47 K/uL (1.2-3.4); Lymphocytes % (auto) 6.1 %; Mean Corpuscular Hemoglobin 29.6 pg (25-34); Mean Corpuscular Hgb Conc 32.3 g/dL (32-36); Mean Corpuscular Volume 91.8 fL (80-100); Mean Platelet Volume 11.7 fL (7.4-10.4); Monocytes # (auto) 0.44 K/uL (0.11-0.59); Monocytes % (auto) 5.7 %; Neutrophils # (auto) 6.65 K/uL (1.4-6.5); Neutrophils % (auto) 86.1 %; Platelet Count 227 K/uL (130-400); RDW Coefficient of Variation 14.4 % (11.5-14.5); RDW Standard Deviation 48.6 fL (36.4-46.3); Red Blood Count 3.41 M/uL (4.2-5.4); White Blood Count 7.72 K/uL (4.8-10.8)
[2020-09-30 07:27] LABS: Albumin Globulin Ratio 0.6 (0.9-2); Albumin Level 2.2 gm/dl (3.4-5.0); BUN Creatinine Ratio 19.8 (10-20); Bilirubin,Total 1.6 mg/dl (0.2-1); Calcium 8.4 mg/dl (8.5-10.1); Creatinine Clr Calc Pharmacy 29.7 ml/min; Est GFR (African American) 28.5 ml/min; Est GFR (Non-African American) 24.6 ml/min; Total Protein 6.2 gm/dl (6.4-8.2)
--- NOTE | 2020-09-30 08:58 | Gastroenterology Progress Note ---
Date of Service September 30, 2020 Assessment & Plan (1) Choledocholithiasis: Plan: 75 year old female with history of NET admitted w/ pain nausea, vomiting, CT imaging concerning for CBD stones, pancreatitis s/p ERCP w/ multiple stones removed from the common bile duct Clear liquids as tolerated Can continue IV hydration today Antiemetics PRN Pain control PRN Complete 5 days of broad spectrum ABX Recall GI as needed. Thank you for allowing us to participate in the care of this patient. Please call with any acute changes, questions or concerns. Please see addendum below with additional recommendation from my supervising physician. Admission and Anticipated Discharge Date Admission Date: September 28, 2020 Supervising Physician Co-Signing Physician Notes I have seen and examined the patient with CLEMENT Pretty whose note reflect our findings and plan. s/p ERCP. Stones removed. 5 days of abx. Please call with questions. Subjective S/P ERCP w/ stone removal. This AM notes intermittent upper abd pain, same as prior to test. No diarrhea/constipation No fever, chills. Review of Systems Review of Systems: All systems reviewed & are unremarkable except as noted in HPI & below Physical Exam Constitutional: WD/WN, vitals as above Respiratory: normal respiratory effort, lungs clear to auscultation Cardiovascular: RRR, no murmur, no edema Gastrointestinal (Abdomen): Inspection/Auscultation: normal bowel sounds Percussion/Palpation: + abdomen tender Skin: no rashes, warm and dry Results & Data ([facility]) Vital Signs (Past 12 Hours) Vital Signs Temp Pulse Resp BP Pulse Ox 09/30/20 07:46 37.0 C 68 16 155/77 H 94 09/29/20 22:54 36.9 C 59 L 17 123/78 94
[2020-09-30] MEDS: INSULIN ASPART 100 UNITS/ML 3 ML PEN SC SCH ×4 (09:04→20:38)
[2020-09-30] MEDS: INSULIN GLARGINE SOLOSTAR 100 UNITS/ML 3 ML PEN SC SCH ×2 (09:05→20:39)
[2020-09-30 09:13] LABS: Potassium 3.2 mmol/L (3.5-5.1)
[2020-09-30] MEDS: ONDANSETRON INJ 2 MG/ML 2 ML VIAL IV PRN (09:26)
[2020-09-30] MEDS ORDERED: MoRPHine SULFATE 2 MG/ML CARP IV PRN (10:11)
[2020-09-30 10:42] LABS: Appearance Urine Turbid (Clear); Blood Urine 1+ (Negative); Color Urine Dark Yellow; Epithelial Cell Urine Auto >30 /lpf (0-5); Glucose Urine UA Negative (Negative); Ketones Urine Trace (Negative); Leukocyte Esterase Urine 2+ (Negative); Nitrite Urine Negative (Negative); Protein Urine 2+ (Negative); Specific Gravity Urine 1.033 (1.000-1.030); Urobilinogen Urine Negative (Negative); WBC Urine Automated >30 /hpf (0-5)
[2020-09-30 10:46] LABS: Bilirubin Urine 1+ (Negative)
[2020-09-30 11:44] LABS: Amorphous Sediment Urine Present (None Prsent); Bacteria Urine Automated 1+ (Negative)
[2020-09-30] MEDS: PROMETHAZINE HCL 12.5 MG in SODIUM CHLORIDE 0.9% 50 ML IV PRN ×2 (16:07→22:58)
[2020-09-30] MEDS ORDERED: MoRPHine SULFATE 4 MG/ML 1 ML CARP\\VIAL IV PRN (19:32)
--- NOTE | 2020-09-30 19:36 | Hospitalist Progress Note ---
Date of Service September 30, 2020 Assessment & Plan (1) Choledocholithiasis: Plan: Now status post ERCPstones cleared. Antibiotics, pain control, supportive care, slowly advance diet. Discussed low-fat diet to hopefully try to reduce recurrent stone formation. Pain control, nausea control. (2) Acute pancreatitis: Plan: Anticipate improvement. Continue supportive care. Pain control, nausea contr ol. (3) Restless leg syndrome: Plan: Hold ropinirole for now (4) Diabetes: Plan: Continue to titrate insulinswith increased p.o. intakehad to increase basal and tighten carb ratio both (5) Hypertension: Plan: Hold losartan and HCTZ due to RENO (6) Acute kidney injury: Plan: Creatinine 1.72 upon admission, with base 1.16, now up to 1.97FENa checked due to concern of prerenal versus ATN. With high specific gravity on UA and very low urine sodiumpicture appears very prerenal. Continue IV fluids and encourage p.o. intake Holding losartan and HCTZ as noted above Anticipate improvement with fluids given that it clearly appears very prerenal Plan: Dispositionanticipate home once her creatinine is improving, her pain is better controlled, and her p.o. intake is improved. Admission and Anticipated Discharge Date Admission Date: September 28, 2020 Subjective Having more pain and nausea. Still able to take p.o.is not really clear whether or not p.o. affected the pain or nausea much. Later revisitedPhenergan helping her rest. Review of Systems Review of Systems: All systems reviewed & are unremarkable except as noted in HPI & below Physical Exam Physical Exam: Vitals noted, in general she is awake and alert pleasant appears a little bit frustrated with the nausea and pain. Later sleeping comfortably on her side. HEENT normocephalic atraumatic mucous membranes moist. Breathing unlabored no accessory muscle use good effort. Abdomen soft but she does have epigastric and right upper quadrant tenderness no guarding rebound or rigidity. Results & Data Results [facility] ([facility]) Vital Signs (Past 12 Hours) Vital Signs Temp Pulse Resp BP Pulse Ox 09/30/20 15:44 98.1 F 66 16 158/73 H 96 09/30/20 07:46 98.6 F 68 16 155/77 H 94 PG Care Time/CCT Total # of Minutes Spent Total Time Spent with Patient: Total time spent is greater than 50% in coordination of care (as documented) at patient's floor/unit and/or counseling patient: Coding Level of Care Code 40651 Subseq Hosp Care Lvl 3 Diagnoses Choledocholithiasis K80.50 Acute pancreatitis K85.90 Acute pancreatitis complication: unspecified Pancreatitis type: unspecified pancreatitis type Restless leg syndrome G25.81 Diabetes E11.9 Hypertension I10 Acute kidney injury N17.9 (1) Acute pancreatitis Acute pancreatitis complication: unspecified Pancreatitis type: unspecified pancreatitis type Qualified Code(s): K85.90 - Acute pancreatitis without necrosis or infection, unspecified
[2020-09-30] MEDS: rOPINIRole HCL 0.25 MG TABLET PO SCH (20:39)
[2020-09-30] MEDS ORDERED: POTASSIUM CHLORIDE CRTAB 20 MEQ TABCR PO STA (23:24)
[2020-10-01] MEDS: AMPICILLIN/SULBACTAM SOD 1,500 MG in 0.9 % SODIUM CHLORIDE 100 ML IV SCH ×2 (00:23→12:18)
[2020-10-01] MEDS: LACTATED RINGER'S 1,000 ML IV SCH ×2 (03:59→18:06)
[2020-10-01] MEDS: PROMETHAZINE HCL 12.5 MG in SODIUM CHLORIDE 0.9% 50 ML IV PRN ×3 (05:50→19:51)
[2020-10-01] MEDS: INSULIN GLARGINE SOLOSTAR 100 UNITS/ML 3 ML PEN SC SCH ×2 (09:21→20:51)
[2020-10-01] MEDS: ONDANSETRON INJ 2 MG/ML 2 ML VIAL IV PRN ×3 (09:21→21:53)
[2020-10-01] MEDS: POTASSIUM CHLORIDE CRTAB 20 MEQ TABCR PO SCH ×2 (09:33→20:51)
[2020-10-01] MEDS: ACETAMINOPHEN 325 MG TAB PO PRN ×2 (09:33→21:48)
[2020-10-01] MEDS: INSULIN ASPART 100 UNITS/ML 3 ML PEN SC SCH ×4 (09:34→20:46)
[2020-10-01 09:42] LABS: Basophils # (auto) 0.02 K/uL (0-0.2); Basophils % (auto) 0.2 %; Eosinophils # (auto) 0.05 K/uL (0-0.5); Eosinophils % (auto) 0.6 %; Hematocrit (blood only) 30.2 % (37-47); Hemoglobin 9.8 g/dL (12.0-16.0); Immature Granulocytes # (auto) 0.04 K/uL (0.00-0.02); Immature Granulocytes % (auto) 0.5 %; Lymphocytes # (auto) 0.33 K/uL (1.2-3.4); Lymphocytes % (auto) 3.8 %; Mean Corpuscular Hemoglobin 29.7 pg (25-34); Mean Corpuscular Hgb Conc 32.5 g/dL (32-36); Mean Corpuscular Volume 91.5 fL (80-100); Mean Platelet Volume 11.5 fL (7.4-10.4); Monocytes # (auto) 0.83 K/uL (0.11-0.59); Monocytes % (auto) 9.5 %; Neutrophils # (auto) 7.45 K/uL (1.4-6.5); Neutrophils % (auto) 85.4 %; Platelet Count 264 K/uL (130-400); RDW Coefficient of Variation 14.3 % (11.5-14.5); White Blood Count 8.72 K/uL (4.8-10.8)
[2020-10-01 10:13] LABS: Albumin Level 2.2 gm/dl (3.4-5.0); Calcium 8.3 mg/dl (8.5-10.1); Creatinine Clr Calc Pharmacy 43.7 ml/min; Est GFR (African American) 45.4 ml/min; Est GFR (Non-African American) 39.2 ml/min; Potassium 3.3 mmol/L (3.5-5.1)
[2020-10-01 10:18] LABS: Albumin Globulin Ratio 0.5 (0.9-2); Bilirubin,Total 1.1 mg/dl (0.2-1); Total Protein 6.2 gm/dl (6.4-8.2)
--- NOTE | 2020-10-01 15:37 | Hospitalist Progress Note ---
Date of Service October 01, 2020 Assessment & Plan (1) Choledocholithiasis: Plan: Pt is 75 yo F with PMH of DM2, pancreatic neoplasm, metastatic neuroendocrine tumor of liver, restless leg syndrome presenting with poor oral intake and abdominal pain, s/p ERCP 09/29 for choledocholithiasis with gallstone pancreatitis. 1) Choledocholithiasis -ERCP 09/29- common bile duct stones removed and now noted improvement in RUQ pain -Continue Unasyn 1.5 g q12h. Zosyn discontinued to worsening nausea -Low-fat diet to reduce recurrent gallstone formation 2) Acute pancreatitis -Likely secondary to gallstones in common bile duct, s/p ERCP and improvement expected with supportive care -PRN Zofran, Phenergan for nausea. PRN Reglan added. -PRN Tylenol for abdominal pain -Pt tolerating full liquids well, will advance to low-fat solids for dinner 3) RENO -Creatinine 1.72 on admission. FENa checked due to concern of prerenal versus ATN. With high specific gravity on UA and very low urine sodiumpicture appears very prerenal -Cr currently 1.34 after IV LR, will continue IVF, encouraged PO fluid intake -Holding home losartan and HCTZ 4) Restless leg syndrome: -Continue home ropinirole 0.5 mg 5) Diabetes: -Insulin titration with advancement of diet, basal increased and carb ratio tightened -Currently Lantus 10 u BID, Novolog ISS 6) Hypertension: -Hold losartan and HCTZ due to RENO FENGI: Low-fat Code status: Full DVT ppx: SCDs Isolation: None Dispo: Likely home tomorrow AM after breakfast Admission and Anticipated Discharge Date Admission Date: September 28, 2020 Supervising Physician Co-Signing Physician Notes I personally examined the patient and verified all sosa points of history and exam, discussed case, and agree with decision making with Dr Reyna. still w some nausea and pain but getting better. was able to eat solids without any noticable worsening vitals noted nad heent nc at mmm breathing unlabored no accessory muscles good effort skin no rashes no pallor or icterus choledolcholithiasis/pancreatitis - post ERCP doing slowly better. ARF just severely prerenal but improving w fluids. continue pain control and supportive care. if continues to tolerate full PO through tomorrow hopefully home in AM otherwise as above Subjective Pt reports some epigastric abdominal pain and nausea, though improved from admission. Ambulating, having loose bowel movements. Afternoon rounds- pt denying abdominal pain but still reporting nausea without good response to PRN Zofran and Phenergan. She was tolerating solid foods at lunch well without any pain or emesis but reports some decreased appetite she attributes to the meal's taste. Review of Systems Review of Systems: All systems reviewed & are unremarkable except as noted in Subjective Gastrointestinal: + nausea; no abdominal pain Physical Exam Physical Exam: Constitutional: well-appearing, no acute distress HEENT: Moist mucous membranes Respiratory: clear to auscultation bilaterally, good air flow entry Cardiovascular: regular rate and rhythm, normal S1 and S2 GI +Mild tenderness to palpation of epigastrium, soft, nondistended, normal bowel sounds Neuro: grossly alert and oriented, no focal motor or sensory deficits Results & Data Results & Data ([facility]) Vital Signs (Past 12 Hours) Vital Signs Temp Pulse Resp BP Pulse Ox 10/01/20 06:39 36.6 C 75 18 175/84 H 97 Resident Activity Tracking Resident Involvement: Resident Care Provided Care Provided: Adult Hospital Medicine
[2020-10-01] MEDS: METOCLOPRAMIDE HCL 10 MG TABLET PO PRN (16:12)
--- NOTE | 2020-10-01 18:40 | Billing Data ---
Date of Service October 01, 2020 Coding Level of Care Code 22061 Subseq Hosp Care Lvl 2
[2020-10-01] MEDS: rOPINIRole HCL 0.25 MG TABLET PO SCH (20:50)
[2020-10-02] MEDS: AMPICILLIN/SULBACTAM SOD 1,500 MG in 0.9 % SODIUM CHLORIDE 100 ML IV SCH (00:49)
[2020-10-02] MEDS: LACTATED RINGER'S 1,000 ML IV SCH (00:52)
[2020-10-02] MEDS: ACETAMINOPHEN 325 MG TAB PO PRN (02:15)
[2020-10-02 05:51] LABS: Hematocrit (blood only) 29.1 % (37-47); Hemoglobin 9.5 g/dL (12.0-16.0); Mean Corpuscular Hemoglobin 29.8 pg (25-34); Mean Corpuscular Hgb Conc 32.6 g/dL (32-36); Mean Corpuscular Volume 91.2 fL (80-100); Mean Platelet Volume 11.2 fL (7.4-10.4); Platelet Count 293 K/uL (130-400); RDW Coefficient of Variation 14.3 % (11.5-14.5); RDW Standard Deviation 48.8 fL (36.4-46.3); Red Blood Count 3.19 M/uL (4.2-5.4); White Blood Count 7.55 K/uL (4.8-10.8)
[2020-10-02 06:29] LABS: BUN Creatinine Ratio 15.9 (10-20); Calcium 8.2 mg/dl (8.5-10.1); Creatinine Clr Calc Pharmacy 51.4 ml/min; Est GFR (African American) 55.2 ml/min; Est GFR (Non-African American) 47.7 ml/min; Potassium 3.1 mmol/L (3.5-5.1)
[2020-10-02] MEDS: ONDANSETRON INJ 2 MG/ML 2 ML VIAL IV PRN (08:18)
[2020-10-02] MEDS: INSULIN ASPART 100 UNITS/ML 3 ML PEN SC SCH (09:07)
[2020-10-02] MEDS: INSULIN GLARGINE SOLOSTAR 100 UNITS/ML 3 ML PEN SC SCH (09:07)
[2020-10-02] MEDS: POTASSIUM CHLORIDE CRTAB 20 MEQ TABCR PO SCH (09:08)
--- NOTE | 2020-10-02 11:24 | Discharge Summary ---
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 She presents with symptoms as noted above. Work-up in the emergency department included a CT scan of abdomen and pelvis which showed extensive choledocholithiasis and acute pancreatitis. Significant laboratories include: Potassium 2.9, creatinine 1.72, glucose 294, lipase 1147, AST 149, ALT 312, total bilirubin 3.6, albumin 3.1 Admission Exam Per Admitting Provider he patient is awake, alert and oriented 3, well developed and well nourished, normocephalic and atraumatic, lying in bed and in mild distress secondary to abdominal discomfort. HEENT--PERRL, EOMI, mucous membranes and oropharynx dry. Neck--supple. No JVD. No bruits. Thyroid normal, trachea midline, no adenopathy. Heart--normal S1 and S2. No murmurs, rubs or gallops. Lungs--clear bilaterally, no respiratory distress, no accessory muscle use. Abdomen--normal bowel sounds and soft. Nontender. Nondistended. Extremities--no cyanosis or clubbing. No edema. There are good distal pulses b/l. Dermatologic--normal skin turgor, normal color, no abnormal lymph nodes, no rash. Neurologic--cranial nerves II through XII grossly intact. Rheumatologic--normal range of motion. Psychiatric--normal affect. Principal Diagnosis Choledocholithiasis leading to gallstone pancreatitis Discharge Exam Constitutional WD/WN, vitals as above + obese ENMT Mouth: no dentition abnormality Neck normal visual inspection and trachea midline; neck extension not limited Respiratory normal respiratory effort, lungs clear to auscultation normal respiratory effort Auscultation: lungs clear to auscultation bilaterally Cardiovascular RRR, no murmur, no edema Rate/Rhythm: regular rate and regular rhythm Heart Sounds: no murmur Vessels: no carotid bruit Gastrointestinal (Abdomen) Inspection/Auscultation: normal bowel sounds Percussion/Palpation: abdomen soft; abdomen nontender, no guarding, abdomen not rigid and no hepatosplenomegaly Musculoskeletal Spine: normal cervical ROM Extremities: extremities normal to inspection Skin no rashes, warm and dry Neurologic moves all extremities Motor/Sensory: no sensory deficit Psychiatric Orientation: alert and oriented x 3 Discharge Data Allergies Allergy/AdvReac Type Severity Reaction Status Date / Time ibuprofen Allergy Intermediate HIVES AND Verified 09/28/20 17:11 SWELLING pramipexole [From Mirapex] AdvReac Hyperactivi Verified 09/28/20 17:11 ty Consultations 09/28/20 17:45 ED Decision to Admit Stat Procedures Performed Operation Date: 09/29/20 08:20 Actual Procedures p Endoscopic retrograde cholangiopancreatography - Theodore Mc DO Ordered Studies 09/28/20 16:17 CT abd pelvis wo con Stat 09/29/20 07:00 FL ERCP biliary ductal Routine Hospital Course (1) Choledocholithiasis: Pt is 75 yo F with PMH of DM2, pancreatic neoplasm, metastatic neuroendocrine tumor of liver, restless leg syndrome, distant cholecystectomy presented with poor oral intake and abdominal pain, s/p ERCP 09/29 for choledocholithiasis with gallstone pancreatitis. Hospitalized 09/29 to 10/02. 1) Choledocholithiasis -ERCP 09/29- common bile duct stones removed, noted improvement in RUQ pain. -Unasyn 1.5 g q12h during inpatient stay, discharged with 3 days of Augmentin to be completed outpatient per GI recommendation -Pt counseled about importance of low-fat diet to reduce recurrent gallstone formation 2) Acute pancreatitis -Likely secondary to gallstones in common bile duct, s/p ERCP. Improved with IVF, PRN Tylenol for pain, diet advanced and patient tolerating solids well by day of discharge. 3) RENO -Creatinine 1.72 on admission. FENa checked due to concern of prerenal versus ATN. RENO ruled to be pre-renal, given IVF and resolved by day of discharge with BUN 18, Cr 1.14 4) Restless leg syndrome: -Continued home ropinirole 0.5 mg 5) Diabetes: -Managed with Lantus 10 u BID, Novolog ISS, no complications during this admission Total Time Total Time Spent Total Time Spent (In Minutes): <30 Discharge Plan Discharge Items Patient Disposition: Home - Self-Care Reason For Visit: CHOLEDOCHOLITHIASIS, PANCREATITIS Discharge Diagnosis: Choledocholithiasis, pancreatitis Activity: Per Instructions section Non-emergency contact: Primary Care Provider Call non-emergency contact if: you have any medication questions, your symptoms worsen, your pain is not controlled, your pain is worsening, your pain is concerning for you and you have a fever Follow-up/Referrals: Ye Trejo MD [Primary Care Provider] - 10/09/20 10:30 am (Scheduled with Rossi Mays PA-C) Diet: Low Fat Addtl Attending Provider Instructions: You were admitted to the hospital for choledocholithiasis and pancreatitis. Choledocholithiasis/pancreatitis -You were admitted to the hospital for choledocholithiasis, which refers to the presence of gallstones in the ducts connecting your liver to your pancreas and intestines. You received imaging studies which detected the gallstones and you then underwent the ERCP procedure, which led to the removal of the gallstones. You also received antibiotics to fight any infection of the ducts. You were also diagnosed with pancreatitis, an inflammation of the pancreas caused by obstruction due to the gallstones. Your pancreatitis was treated with IV fluids and gradual advancement from clear liquids to solid food as you were able to tolerate. Your nausea will resolve with time as your pancreas fully recovers from the inflammation. Your sense of taste will also return to normal as your pancreas similarly heals. Gallstones may occur again in the future, though you can reduce the risk by minimizing greasy/oily/fatty foods in your diet, weight loss and adequate hydration. A discharge summary will be sent to your primary care physician to ensure continuity of care. Please bring this discharge summary with you to your next office appointment so that your provider can review it at that time. Follow-up appointments: Make a follow-up appointment with your PCP within the next week. It is very important that you follow up with them shortly after discharge from the hospital. Medications: Your medication list has been reviewed and reconciled upon discharge to ensure accuracy and continuity of care. An updated list of all your medications is included with your hospital discharge paperwork. Please review this list closely, and make note of any changes. We sent a new medication called Augmentin to your pharmacy, the [facility] on [facility]. This is Augmentin 500-125 mg, which you will take once a day for 3 days. This will eliminate any bacterial infection that may be present in the ducts where your gallstones were. Take your medications as instructed; do not skip a dose of your medicines. Make sure all of your doctors know every medicine you are taking (including qolk-wez-slbkqkw medicines, vitamins, and supplements). Call your primary care provider before taking any new medicines (including hkhk-fwl-vjigjdy medicines, vitamins, and supplements), because some of these may interact with your current medications, or may make your symptoms worse. Tell your primary care provider if you cannot afford your medications. CONTACT YOUR PRIMARY CARE PROVIDER if you experience any of the following: Fever Abdominal pain Nausea/vomiting Decreased appetite Yellowing of your skin or eyes Difficulty following your treatment plan, or difficulty taking medications CALL 911 OR GO TO THE EMERGENCY DEPARTMENT if you experience any of the following: Sudden, severe abdominal pain or nausea/vomiting Severe chest pain, or chest pain that radiates (moves) to your jaw or arm Sudden, severe shortness of breath or difficulty breathing Thank you for allowing us to participate in your care. Pending Studies at Discharge: No Stand-Alone Forms: [facility] [employer], Smoking Cessation Medications and DC Order Prescriptions: New amoxicillin-pot clavulanate [Augmentin] 500-125 mg tablet 1 tab PO DAILY Qty: 3 RF: 0 Continued venlafaxine 37.5 mg capsule,extended release 24hr 37.5 mg PO QAM Qty: 90 RF: 1 ropinirole 0.5 mg tablet 0.5 mg PO .COMPLEX 30 Days Qty: 45 RF: 0 gabapentin 300 mg capsule 600 mg PO TID 90 Days Qty: 540 RF: 1 hydrochlorothiazide 25 mg tablet 25 mg PO DAILY Qty: 90 RF: 3 Aimovig Autoinjector 140 mg/mL auto-injector 140 mg subcut .COMPLEX 30 Days Qty: 1 RF: 5 topiramate [Topamax] 50 mg tablet 50 mg PO BID 90 Days Qty: 180 RF: 1 (DME) OneTouch Verio test strips Strip See Rx Instructions .ROUTE .MEDSUPPLY Qty: 50 RF: 3 (DME) lancets [OneTouch Delica Lancets] 30 gauge misc See Rx Instructions .ROUTE .MEDSUPPLY Qty: 100 RF: 1 glipizide 10 mg tablet 10 mg PO BID Qty: 60 RF: 1 losartan 50 mg tablet 50 mg PO DAILY Qty: 90 RF: 3 prochlorperazine maleate [Compazine] 10 mg tablet 10 mg PO TID PRN (Reason: Nausea) RF: 0 diazepam [Valium] 5 mg tablet 2.5 mg PO HS PRN (Reason: anxiety) Qty: 30 RF: 0 octreotide acetate 50 mcg/mL solution 50 mcg subcut MONTHLY RF: 0 multivitamin Tablet 1 tab PO QAM RF: 0 aspirin 81 mg Tablet,Delayed Release (Dr/Ec) 81 mg PO QAM RF: 0 acetaminophen [Tylenol Extra Strength] 500 mg Tablet 500 mg PO Q6H PRN (Reason: Pain) RF: 0 albuterol sulfate [Ventolin HFA] 90 mcg/actuation Hfa Aerosol Inhaler 2 puff INHALATION Q4H PRN (Reason: Shortness Of Breath Or Wheezing) RF: 0 ondansetron 4 mg tablet,disintegrating 4 mg PO Q8H PRN (Reason: nausea and vomiting) Qty: 30 RF: 0 Discharge Orders: Discharge Order (Routine); Ordered 10/02/20 Ordered By: Domenic Reyna Admission Data Admit Date/Time: 09/28/20 20:15 Attending Provider: Dallas Brothers Admit Provider: Clemente Pemberton Primary Care Provider: Ye Trejo V. Other Providers: Clemente Pemberton Other Interventions: Discharge Summary Assessment (RN) Last Done: 10/02/20 12:19 Supervising Physician Co-Signing Physician Notes I personally examined the patient and verified all sosa points of history and exam, discussed case, and agree with decision making with Dr Reyna. Generally feeling betterdefinitely up to going home. Eating better. vitals noted nad heent nc at mmm breathing unlabored no accessory muscles good effort skin no rashes no pallor or icterus choledolcholithiasis/pancreatitis - post ERCP doing slowly better. ARF just se verely prerenal but improved w fluids. Eating and drinking okaynow stable for home. Finish out a short course of antibiotics. Outpatient follow-up. otherwise as above Resident Activity Tracking Resident Involvement: Resident Care Provided Care Provided: Adult Hospital Medicine
[2020-10-02] MEDS: METOCLOPRAMIDE HCL 10 MG TABLET PO PRN (11:34)
--- NOTE | 2020-10-02 19:16 | Billing Data ---
Date of Service October 02, 2020 Coding Level of Care Code D/C DAY MANAGEMENT <30 MINS
== END 2020-10-02 13:03 | disposition home or self-care (01) | DRG 444 ==
LOC: ED 12:57 → 3N 20:15 → SUATTDRO 20:15 → 3N 21:57